=== PATIENT | female | born 1980 | race Caucasian/White ===

== ENCOUNTER 2020-09-08 16:15 | Outpatient (REF) | payer OTHER, SELFPAY ==
[2020-09-08 18:27] LABS: Free T4 (Free Thyroxine) 0.93 ng/dL (0.71-1.85); Thyroid Stimulating Hormone 4.66 uIU/mL (0.32-4.0)
[2020-09-10 20:31] LABS: Triiodothyronine T3 Free 3.4 pg/mL (2.3-4.2)
[2020-09-10 22:03] LABS: Thyroglobulin Antibodies <1 IU/mL (< or = 1); Thyroid Peroxidase Antibodies 153 IU/mL (<9)
== END 2020-09-08 16:16 | disposition home or self-care (01) ==
LOC: HO.LAB 16:15
PROVIDERS: PCP Family Medicine Adult Medicine; Visit Provider Nurse Practitioner Family
DX: E03.8 Other specified hypothyroidism (principal)
CPT/HCPCS: 36415; 84439; 84443; 84481; 86376; 86800

== ENCOUNTER 2020-11-04 07:42 | Outpatient (REF) | payer OTHER, SELFPAY ==
[2020-11-04 09:00] LABS: Alanine Aminotransferase 14 U/L (0-31); Albumin Level 4.3 g/dL (3.5-5.0); Alkaline Phosphatase 67 U/L (39-117); Aspartate Amino Transferase 14 U/L (5-31); Bilirubin Total 0.4 mg/dL (0.0-1.0); Blood Urea Nitrogen 12 mg/dL (9-16); Calcium 8.7 mg/dL (8.4-10.2); Estimated Glomerular Filt Rate > 60; Glucose Random 96 mg/dL (60-115); Total Protein 6.8 g/dL (6.5-8.0)
[2020-11-04 09:05] LABS: Free T4 (Free Thyroxine) 0.84 ng/dL (0.71-1.85)
[2020-11-04 09:07] LABS: Anion Gap 13 (12-20); Carbon Dioxide 25 mmol/L (22-29); Chloride 106 mmol/L (96-108); Potassium 4.8 mmol/l (3.3-5.1); Sodium 139 mmol/L (135-145)
[2020-11-05 09:37] LABS: Triiodothyronine T3 Free 3.1 pg/mL (2.3-4.2)
[2020-11-05 22:12] LABS: Adrenocorticotropic Hormone 29 pg/mL (6-50)
== END 2020-11-04 07:43 | disposition home or self-care (01) ==
LOC: HO.LAB 07:42
PROVIDERS: PCP Physician Assistant; Visit Provider Nurse Practitioner Family
DX: R53.82 Chronic fatigue, unspecified (principal); E03.8 Other specified hypothyroidism
CPT/HCPCS: 36415; 80053; 82024; 82533; 84439; 84443; 84481

== ENCOUNTER 2021-03-10 06:01 | Outpatient (REF) | payer OTHER, SELFPAY ==
[2021-03-10 08:13] LABS: Free T4 (Free Thyroxine) 0.83 ng/dL (0.71-1.85)
[2021-03-12 17:47] LABS: DHEA Sulfate 125 mcg/dL (23-266)
[2021-03-14 10:07] LABS: Testosterone, Total 29 ng/dL (2-45)
[2021-03-14 18:31] LABS: Progesterone 6.5 ng/mL
[2021-03-15 01:17] LABS: Dihydrotestosterone 14 ng/dL (< OR = 20)
[2021-03-15 11:37] LABS: Pregnenolone, LC/MS 156 ng/dL (22-237)
[2021-03-15 17:12] LABS: Testosterone, Free 1.8 pg/mL (0.1-6.4); Testosterone, Total 31 ng/dL (2-45)
[2021-03-19 20:12] LABS: Estradiol Free 1.94 pg/mL; Estradiol, Ultrasensitive 126 pg/mL
== END 2021-03-10 06:02 | disposition home or self-care (01) ==
LOC: HO.LAB 06:01
PROVIDERS: PCP Physician Assistant; Visit Provider Nurse Practitioner Family
DX: N94.3 Premenstrual tension syndrome (principal); E03.8 Other specified hypothyroidism
CPT/HCPCS: 36415; 82627; 82642; 82670; 82681; 84143; 84144; 84402; 84403; 84439; 84443; 84481

== ENCOUNTER 2021-06-06 08:52 | Outpatient (REF) | payer OTHER, SELFPAY ==
[2021-06-07 09:12] LABS: Triiodothyronine T3 Free 3.8 pg/mL (2.3-4.2)
[2021-06-08 18:07] LABS: Thyroglobulin Antibodies <1 IU/mL (< or = 1); Thyroid Peroxidase Antibodies 96 IU/mL (<9)
== END 2021-06-06 08:53 | disposition home or self-care (01) ==
LOC: HO.LAB 08:52
PROVIDERS: PCP Physician Assistant; Visit Provider Nurse Practitioner Family
DX: E03.8 Other specified hypothyroidism (principal)
CPT/HCPCS: 36415; 84439; 84481; 86376; 86800

== ENCOUNTER 2021-06-08 08:30 | Outpatient (REF) | payer OTHER, SELFPAY ==
--- NOTE | ~2021-06-08 | US_ITS ---
EXAMINATION: US THYROID CLINICAL INFORMATION: Hypothyroidism. COMPARISON: CT neck with intravenous contrast dated 11/23/2018. TECHNIQUE: Linear transducer grayscale and color Doppler examination with attention to the region of the thyroid. FINDINGS: SIZE: Measurements of the thyroid lobes and nodules are given in sagittal, anteroposterior and transverse dimensions respectively. Right Thyroid Lobe: 3.4 x 0.9 x 1.2 cm, volume 1.9 mL. Parenchyma: The gland echotexture is heterogeneous. Thyroid vascularity is increased. Left Thyroid Lobe: 3.0 x 0.9 x 1.3 cm, volume 1.7 mL. Parenchyma: The gland echotexture is heterogeneous. Thyroid vascularity is increased. Isthmus: 0.12 cm in maximum AP dimension. No focal thyroid nodule is seen. NODES: No lymphadenopathy is seen in the tissue surrounding the thyroid gland. US/US thyroid IMPRESSION: 1. Normal-sized thyroid gland and no nodules seen. TR 1. ACR TI-RADS RECOMMENDATION REFERENCE: Ultrasound-guided fine-needle aspiration, followup ultrasound, no further follow up. * TR1 (0 point) and TR 2 (2 points): No FNA or follow up * TR3 (3 points): FNA if more than or equal to 2.5 cm in maximum dimension, followup ultrasound in 1, 3 and 5 years if 1.5 to 2.4 cm in maximum dimension. * TR4 (4-6 points): FNA if more than or equal to 1.5 cm in maximum dimension, followup ultrasound in 1, 2, 3 and 5 years if 1 to 1.4 cm in maximum dimension. * TR5 (more than or equal to 7 points): FNA if more than or equal to 1 cm in maximum dimension, followup ultrasound every year for 5 years if 0.5 to 0.9 cm in maximum dimension. * TR3, TR4 or TR5 nodules that are below the size threshold for follow up receive no follow up.
== END 2021-06-08 08:31 | disposition home or self-care (01) ==
LOC: HO.US 08:30
PROVIDERS: Visit Provider Nurse Practitioner Family
DX: E03.8 Other specified hypothyroidism (principal)
CPT/HCPCS: 76536

== ENCOUNTER → 2021-07-16 12:50 | Outpatient (BNVA) | payer OTHER, SELFPAY | PROVIDERS: PCP Physician Assistant; Visit Provider Internal Medicine Gastroenterology ==

== ENCOUNTER 2022-01-04 10:00 | Outpatient (REF) | payer OTHER, SELFPAY ==
--- NOTE | ~2022-01-04 | FL_ITS ---
EXAMINATION: FL BARIUM SWALLOW CLINICAL INFORMATION: Dysphagia COMPARISON: None TECHNIQUE: Barium swallow examination is performed using fluoroscopic evaluation in addition to multiple fluoroscopic spot views. The patient is imaged both upright and prone and using both thick and thin sulfate along with effervescent granules. Fluoroscopy time: 1.7 minutes DAP: 2.004 Gycm2 Images: 33 FINDINGS: Normal pharyngeal phase. The esophagus is normal in caliber with no stricture or mucosal abnormality demonstrated. Esophageal motility is normal. No hiatal hernia. No reflux observed. Barium tablet passed without difficulty. FL/FL barium swallow IMPRESSION: Normal barium swallow.
== END 2022-01-04 10:01 | disposition home or self-care (01) ==
LOC: HO.XRAY 10:00
PROVIDERS: Visit Provider Internal Medicine Gastroenterology
DX: R13.10 Dysphagia, unspecified (principal); K21.9 Gastro-esophageal reflux disease without esophagitis
CPT/HCPCS: 74220

== ENCOUNTER → 2022-01-07 14:05 | Outpatient (BNVA) | payer OTHER, SELFPAY | PROVIDERS: PCP Physician Assistant; Referring Provider Physician Assistant; Visit Provider Internal Medicine Gastroenterology | DX: Z12.11 Encounter for screening for malignant neoplasm of colon (principal); K21.9 Gastro-esophageal reflux disease without esophagitis; K22.70 Barrett's esophagus without dysplasia; R13.10 Dysphagia, unspecified; R13.12 Dysphagia, oropharyngeal phase | CPT/HCPCS: 99212 ==

== ENCOUNTER 2022-02-01 06:29 | Outpatient (REF) | payer OTHER, SELFPAY ==
--- NOTE | ~2022-02-01 | XR_ITS ---
EXAMINATION: RIGHT ELBOW X-RAY CLINICAL INFORMATION: Pain COMPARISON: None TECHNIQUE: 3 views of the right elbow FINDINGS: Bone alignment is normal. No fracture or dislocation is seen. Joint spaces are normal. There is no joint effusion. XR/XR shoulder RT min 2V IMPRESSION: Normal right elbow. EXAMINATION: Right shoulder x-ray CLINICAL INFORMATION: Pain COMPARISON: None. TECHNIQUE: 3 views of the right shoulder FINDINGS: Bone alignment is normal. No fracture or dislocation is seen. The joint spaces are normal. Soft tissues are normal. IMPRESSION: Normal right shoulder.
--- NOTE | ~2022-02-01 | XR_ITS ---
EXAMINATION: RIGHT ELBOW X-RAY CLINICAL INFORMATION: Pain COMPARISON: None TECHNIQUE: 3 views of the right elbow FINDINGS: Bone alignment is normal. No fracture or dislocation is seen. Joint spaces are normal. There is no joint effusion. XR/XR elbow RT 2V IMPRESSION: Normal right elbow. EXAMINATION: Right shoulder x-ray CLINICAL INFORMATION: Pain COMPARISON: None. TECHNIQUE: 3 views of the right shoulder FINDINGS: Bone alignment is normal. No fracture or dislocation is seen. The joint spaces are normal. Soft tissues are normal. IMPRESSION: Normal right shoulder.
--- NOTE | ~2022-02-01 | XR_ITS ---
EXAMINATION: XR CHEST CLINICAL INFORMATION: Chronic cough COMPARISON: Previous chest x-ray most recent August [address] October 2018 TECHNIQUE: 2 views of the chest were obtained. FINDINGS: No significant abnormality is noted involving the heart, lungs, mediastinum, bony thorax or soft tissues. XR/XR chest 2V IMPRESSION: Unremarkable examination.
[2022-02-01 08:52] LABS: C Reactive Protein 0.52 mg/dL (< or = 0.50); Uric Acid 3.8 mg/dL (2.4-5.7)
[2022-02-01 09:20] LABS: Free T4 (Free Thyroxine) 0.89 ng/dL (0.71-1.85); Thyroid Stimulating Hormone 0.41 uIU/mL (0.32-4.0)
[2022-02-01 09:38] LABS: Erythrocyte Sedimentation Rate 7 MM/HR (0-20)
[2022-02-03 01:57] LABS: Triiodothyronine T3 Free 3.3 pg/mL (2.3-4.2)
== END 2022-02-01 06:30 | disposition home or self-care (01) ==
LOC: HO.XRAY 06:29
PROVIDERS: Absent Provider Nurse Practitioner Family; PCP Physician Assistant; Visit Provider Nurse Practitioner Family
DX: G89.29 Other chronic pain (principal); M25.511 Pain in right shoulder; M25.521 Pain in right elbow; R05.3 Chronic cough; E03.8 Other specified hypothyroidism
CPT/HCPCS: 36415; 71046; 73030; 73070; 82550; 84439; 84443; 84481; 84550; 85652; 86140

== ENCOUNTER 2022-06-16 07:04 | Outpatient (REF) | payer OTHER, SELFPAY ==
[2022-06-16 08:21] LABS: Thyroid Stimulating Hormone 2.46 uIU/mL (0.32-4.0)
[2022-06-17 15:46] LABS: Triiodothyronine T3 Free 3.2 pg/mL (2.3-4.2)
[2022-06-17 16:56] LABS: Thyroglobulin Antibodies <1 IU/mL (< or = 1); Thyroid Peroxidase Antibodies 65 IU/mL (<9)
== END 2022-06-16 07:05 | disposition home or self-care (01) ==
LOC: HO.LAB 07:04
PROVIDERS: PCP Family Medicine Adult Medicine; Visit Provider Nurse Practitioner Family
DX: E03.8 Other specified hypothyroidism (principal)
CPT/HCPCS: 36415; 84439; 84443; 84481; 86376; 86800

== ENCOUNTER 2023-01-08 07:49 | Outpatient (REF) | payer OTHER, SELFPAY ==
[2023-01-08 08:10] LABS: MANUAL DIFF FLAG NO
[2023-01-08 08:13] LABS: Basophils Percent Auto 0.7 % (0-2); Eosinophils Absolute Auto 0.1 X10*3/uL (0.0-0.4); Eosinophils Percent Auto 1.9 % (0-4); Hematocrit 36.4 % (37.0-47.0); Hemoglobin 12.5 g/dl (12.0-16.0); Imm Gran Abs Auto 0.02 X10*3/uL (0.00-0.03); Imm Gran Pct Auto 0.3 % (0.0-0.4); Lymphocytes Absolute Auto 2.4 X10*3/uL (1.2-4.9); Lymphocytes Percent Auto 39.8 % (20-40); Mean Corpuscular HGB Conc 34.3 g/dl (31.0-35.0); Mean Corpuscular Volume 90.3 fL (80.0-98.0); Mean Platelet Volume 10.6 fL (9.4-12.3); Monocytes Absolute Auto 0.4 X10*3/uL (0.1-1.2); Monocytes Percent Auto 7.1 % (2-11); Neutrophils Percent Auto 50.2 % (45-73); Platelet Count 272 X10*3/uL (160-400); Red Blood Count 4.03 X10*6/uL (4.20-5.50); Red Cell Distribution Width 11.8 % (11.0-16.0); White Blood Count 5.9 X10*3/uL (4.8-10.8)
[2023-01-08 09:08] LABS: Alanine Aminotransferase 11 U/L (0-31); Albumin Level 3.8 g/dL (3.5-5.0); Alkaline Phosphatase 70 U/L (39-117); Anion Gap 10 (12-20); Aspartate Amino Transferase 14 U/L (5-31); Bilirubin Total 0.5 mg/dL (0.0-1.0); Blood Urea Nitrogen 11 mg/dL (9-16); Calcium 8.5 mg/dL (8.4-10.2); Carbon Dioxide 25 mmol/L (22-29); Chloride 108 mmol/L (96-108); Estimated Glomerular Filt Rate > 60; Glucose Random 91 mg/dL (60-115); Magnesium 2.1 mg/dL (1.6-2.6); Potassium 4.3 mmol/L (3.3-5.1); Sodium 139 mmol/L (135-145); Total Protein 6.1 g/dL (6.5-8.0)
[2023-01-08 09:37] LABS: Folate 8.7 ng/mL (> or = 4.0); Free T4 (Free Thyroxine) 0.79 ng/dL (0.71-1.85); Thyroid Stimulating Hormone 4.04 uIU/mL (0.32-4.0); Vitamin B12 453 pg/mL (200-900)
[2023-01-11 02:23] LABS: Thyroglobulin Antibodies <1 IU/mL (< or = 1); Thyroid Peroxidase Antibodies 135 IU/mL (<9)
[2023-01-12 12:38] LABS: Iodine, Serum/Plasma 40 mcg/L (52-109)
== END 2023-01-08 07:50 | disposition home or self-care (01) ==
LOC: HO.LAB 07:49
PROVIDERS: PCP Family Medicine Adult Medicine; Visit Provider Nurse Practitioner Family
DX: R53.83 Other fatigue (principal); E03.8 Other specified hypothyroidism
CPT/HCPCS: 36415; 80053; 82607; 82746; 83735; 83789; 84439; 84443; 84481; 85025; 86376; 86800

== ENCOUNTER 2023-04-13 15:17 | Emergency (ER) | payer OTHER, SELFPAY ==
--- NOTE | 2023-04-13 15:55 | PC.NURSE ---
called x 3 outside of ER and in [facility]. No answer. Presumed LWT.
--- NOTE | 2023-04-13 16:17 | PC.NURSE ---
called x 3 inside and outside of [facility]. No answer.
== END 2023-04-13 16:38 | disposition left against medical advice (07) ==
LOC: HO.ED 16:38
PROVIDERS: Emergency Provider Emergency Medicine
DX: Z53.21 Procedure and treatment not carried out due to patient leaving prior to being seen by health care provider (principal)

== ENCOUNTER 2023-05-03 01:46 | Emergency (ER) | payer OTHER, SELFPAY ==
[2023-05-03 01:49] VITALS: BP 115/80; PULSE 75; RESP 16; TEMP 37.1; O2SAT 97; BMI 22.6
[2023-05-03 04:00] VITALS: BP 103/56; PULSE 70; RESP 16; TEMP 36.5; O2SAT 95
--- NOTE | 2023-05-03 06:45 | ED.GENADULT ---
HPI - General Adult General Chief complaint: General Medical Stated complaint: Rash/?Face swelling Time Seen by Provider: 05/03/23 06:28 Source: patient Mode of arrival: ambulatory Limitations: no limitations History of Present Illness HPI narrative: 42 yo female presents to the ER for evaluation of a rash to the inside of her right eye that started 3 days ago after working in the yard the day before. She states she woke up with a swollen upper eye lid on the right eye and a rash on the inside of the eye. It is itching and burning. The eyelid swelling improved with benadryl but the rash has since spread to her forehead, face and back of her neck on both sides. No difficulty breathing or oral involvement. She reports the vision in the right eye is blurry sometimes. MD complaint: facial rash Onset (ago): day(s) (3) Location: face and neck Severity: moderate Quality: burning and other (itching) Pain Consistency: constant Relieving factors: none Exacerbating factors: none Associated symptoms: denies other symptoms Treatments prior to arrival: none Related Data Home Medications Medication Instructions Recorded Confirmed thyroid (pork) 15 mg tablet mg PO QID 07/16/21 03/03/22 ([place] Thyroid) Allergies Allergy/AdvReac Type Severity Reaction Status Date / Time CRANBERRY JUICE Allergy Severe HIVES Uncoded 03/03/22 10:22 Review of Systems Review of Systems: Yes all other systems are reviewed and are negative PMFSH Past Medical History Medical History Multiple gastric ulcers Post concussion syndrome Surgical History H/O dilation and curettage (~1999) Hx of endoscopy (~07/2017) Family History Family History Mother Diabetes Heart disease Heart failure Father Heart failure Heart disease Paternal Grandmother Diabetes Prostate CA Paternal Uncle Prostate CA Social History Social History Household Members: None Housing: House Alcohol intake: never Patient Tobacco Use Status: Current someday Tobacco user Tobacco use type: Cigarette Smoked in Last 30 Days: No e-Cigarette/Vaping Use: Never Used Use of substances other than those prescribed or required for medical reasons: No Advance Directives: No Advance Directives Information Provided: Yes Patient : No service: No Current occupational status: student Current occupational exposures/hazards: No Cognitive needs: No Hearing needs: No Vision needs: No Physical Exam ED Vital Signs: Vital Signs - 24 hr 05/03/23 01:49 05/03/23 04:00 Temperature 98.8 F 97.7 F Pulse Rate 75 70 Respiratory Rate 16 16 Blood Pressure 115/80 103/56 L Pulse Oximetry 97 95 Oxygen Delivery Method Room Air Room Air BMI result Body Mass Index 22.6 Appearance: Alert. Oriented X3. No acute distress. HEENT: normal inspection of the bilateral eyes and eyelids, PERRLA CVS: Normal heart rate and rhythm. Pulses normal. Respiratory: No respiratory distress. Lungs CTAB Skin: Skin warm and dry. Normal skin color. Normal skin turgor. There is a erythematous, raised, scatted rash on the inside of the right eye, upper forehead bilaterally and the back of the neck bilaterally with few lesions Extremities: normal inspection x4, no joint swelling, no lower extremity edema Neuro: Oriented X 3. No motor deficit. No sensory deficit. Medical Decision Making Medical Decision Making MDM Narrative: 42 yo female presents to the ER for evaluation of a burning, itching rash that started near the right eye 3 days ago and has since spread to the forehead and neck, after working in the yard. Exam and clinical presentation c/w poison naila dermatits. Less likely shingles given that it crosses midline and involves more than one dermatome, although could have multiple ganglions involved. Given her blurred vision and close proximity to the eye, plan was for fluoroscene exam. Prednisone was ordered. Patient eloped prior to full evaluation and treatment. Differential Diagnosis Differential Diagnoses: The differential diagnosis associated with the presentation includes poison naila, contact dermatitis, shingles, allergic dermatitis External Record Review External record reviewed: Outpatient record and Prior outpatient labs Prescription Management I considered prescription management with: Antiviral Critical Care Time Critical Care Time Critical Care Time: No Discharge Plan Discharge Clinical Impression: Rash Patient Disposition: Elopement Prescriptions: No Action thyroid (pork) [[place] Thyroid] 15 mg tablet PO QID Interventions: ED Discharge Assessment Last Done: 05/03/23 07:03 Discharge Date/Time: 05/03/23 07:03
--- NOTE | 2023-05-03 07:01 | PC.NURSE ---
Pt not in room for med administration, per staff she asked to be buzzed out .
== END 2023-05-03 07:03 | disposition left against medical advice (07) ==
PROVIDERS: Emergency Provider Emergency Medicine Emergency Medical Services
DX: R21 Rash and other nonspecific skin eruption (principal); H53.8 Other visual disturbances
CPT/HCPCS: 99282; 99284

== ENCOUNTER 2023-07-08 07:24 | Outpatient (REF) | payer OTHER, SELFPAY ==
[2023-07-08 09:08] LABS: Alanine Aminotransferase 10 U/L (0-31); Albumin Level 4.2 g/dL (3.5-5.0); Alkaline Phosphatase 79 U/L (39-117); Anion Gap 11 (12-20); Aspartate Amino Transferase 15 U/L (5-31); Bilirubin Total 0.3 mg/dL (0.0-1.0); Blood Urea Nitrogen 22 mg/dL (9-16); Calcium 9.4 mg/dL (8.4-10.2); Carbon Dioxide 24 mmol/L (22-29); Chloride 109 mmol/L (96-108); Estimated Glomerular Filt Rate > 60; Glucose Random 94 mg/dL (60-115); Potassium 4.2 mmol/L (3.3-5.1); Sodium 140 mmol/L (135-145); Total Protein 7.1 g/dL (6.5-8.0)
[2023-07-08 09:25] LABS: Free T4 (Free Thyroxine) 0.83 ng/dL (0.71-1.85); Thyroid Stimulating Hormone 0.97 uIU/mL (0.32-4.0)
[2023-07-08 09:37] LABS: Vitamin B12 437 pg/mL (200-900)
[2023-07-08 17:09] LABS: Cortisol Random 5.3 ug/dL
[2023-07-10 03:23] LABS: DHEA Sulfate 106 mcg/dL (19-237); Follicle Stimulating Hormone 2.9 mIU/mL
[2023-07-11 20:24] LABS: Thyroid Peroxidase Antibodies 110 IU/mL (<9)
[2023-07-12 17:59] LABS: Thyroglobulin Antibodies <1 IU/mL (< or = 1)
[2023-07-13 04:19] LABS: Methylmalonic Acid 126 nmol/L (87-318)
[2023-07-13 16:58] LABS: Magnesium, RBC 6.2 mg/dL (4.0-6.4)
[2023-07-13 19:29] LABS: Iodine, Serum/Plasma 47 mcg/L (52-109)
[2023-07-14 05:19] LABS: Dihydrotestosterone 16 ng/dL (< OR = 20)
[2023-07-14 11:57] LABS: Adrenocorticotropic Hormone 25 pg/mL (6-50)
[2023-07-14 12:38] LABS: Testosterone, Free 1.9 pg/mL (0.1-6.4); Testosterone, Total 22 ng/dL (2-45)
[2023-07-14 19:57] LABS: Progesterone 17.5 ng/mL
[2023-07-14 23:13] LABS: Estradiol Ultra Sensitive 164 pg/mL
[2023-07-19 23:39] LABS: Pregnenolone, LC/MS 121 ng/dL (22-237)
== END 2023-07-08 07:25 | disposition home or self-care (01) ==
LOC: HO.LAB 07:24
PROVIDERS: Visit Provider Nurse Practitioner Family
DX: R53.82 Chronic fatigue, unspecified (principal); N94.3 Premenstrual tension syndrome; E03.8 Other specified hypothyroidism
CPT/HCPCS: 36415; 80053; 82024; 82533; 82607; 82627; 82642; 82670; 82746; 83001; 83002; 83735; 83789; 83921; 84143; 84144; 84402; 84403; 84439; 84443; 84481; 86376; 86800

== ENCOUNTER 2024-01-26 10:45 | Outpatient (AMB) | payer OTHER, SELFPAY ==
--- NOTE | 2024-01-26 10:46 | MHC.OFFVIS ---
Intake Visit Reasons: Bloating, CIC, Upper GI Issues Intake Note: Patient follow up for bloating, CIC and Upper GI issues. Patient cc: abdominal discomfort and bloating, greasy BM and hard to pass. Denies any other GI issues. Patient is in [place] and is coming back middle of January. Dietetic Aide Required: No Allergies CRANBERRY JUICE Allergy (Severe, Uncoded 03/15/24 13:51) HIVES HPI HPI Bloating, CIC, Upper GI Issues: Details: TELEMEDICINE VISIT FOR THIS 43-YEAR-OLD FEMALE FOR FOLLOW-UP OF GERD? COMPLICATED BY MEEKS'S ESOPHAGUS Pt was last seen in December,. States she is in [place] and will return mid January ?CHRONIC ILLNESSES: vitiligo, Rosacea, Post concussion syndrome,? Hypothyroidism ?LABS IN [employer]: 04/03/20 reviewed. 11/23/19 Reviewed,? celiac serologies were negative in 2016 ?IMAGING STUDIES: 01/04/22 BARIUM SWALLOW SHOWED: Normal pharyngeal phase. The esophagus is normal in caliber with no stricture or mucosal abnormality demonstrated. Esophageal motility is normal. No hiatal hernia. No reflux observed. Barium tablet passed without difficulty. 07/17 HIDA? scan was normal. ?06/16 Abd US? showed: ?IMPRESSION: ?1. There is mild echogenic bile, without? cholelithiasis, cholecystitis or choledocholithiasis. ?2. Limited? ultrasound examination of the pancreatic tail. ?3. Otherwise,? unremarkable abdominal ultrasound examination. ?ENDOSCOPIC? STUDIES: ?BIOPSIES SHOWED: ?A. Small bowel, biopsy: Small? intestinal mucosa within normal limits. ?B. Stomach, ulcer, biopsy:? Reactive gastropathy with background mild chronic inactive ? inflammation and intestinal metaplasia; no dysplasia seen; no Helicobacter? organisms seen. ?C. Stomach, antrum, biopsy: Antral-type mucosa with? mild chronic, focally active, inflammation; no Helicobacter organisms? seen. ?D. Esophagus, distal, biopsy: ?- Cardiofundic-type? mucosa with mild chronic inactive inflammation; no intestinal metaplasia? seen. ?- Chronic active esophagitis (rare eosinophil). ?E.? Esophagus, proximal, biopsy: Squamous epithelium within normal limits; no? inflammation seen. ?TODAY'S VISIT Patient follow up for bloating, CIC and Upper GI issues. Patient cc: abdominal discomfort and bloating, greasy BM and hard to pass. Patient is in [place] and is coming back middle of January. I have been bloated for 4 months - extreme bloating. She has been in [place] for the past 2 months She is helping family in [place]. Planning to return on 02/18/24 Irregular BMs - Bms are soft and hard to pass Has a BM daily - sometimes multiple soft small BMs which are hard to pass Tried fasting and drinking large quantities of liquids Has hypothyroidism and is under control - has lab tests every 3 months Had a colonoscopy in [address] Britton at [facility] [place] for evaluation of her GI symptoms - does not recall the results. PAST VISIT: Barium swallow results reviewed with the patient - normal Notes dysphagia to solids and liquids - food feels stuck before it goes. No problems after she swallows the food Has been feeling exhausted with brain fog. New thyroid medications are working better than the previous preparation. Switched from Levothyroxine to [place] (natural thyroid hormone from pig hormone) ? ? ? Thyroid hormones are normal, has more energy and resolution of brain fog. ? ? ? Wakes up congested and throat is sore. ?? ? Denies frequent heartburn - only notes heartburn when she drinks colored liquids and only drinks water. Notes a lot of bloating - does a lot of fasting due to bloating. Sensitive stomach and unable to put any pressure on it. Notes constipation before her periods, diarrhea when her periods start. Has a feeling of incomplete evacuation - always feels something is there. Has 3 BM in the am - and 1-2 in the afternoon Takes brown rice and a high fibre diet. Lost 12 lbs over the past 2 months since switching to [place]. Takes BPC 157 SQ every night (peptide) - prescribed by a Roller - which has helped with bloating and feeling full. Is able to eat certain things which she could not take before. ?Diagnosed with hypothyroidism since 2019 and sees an customs manager. ?Has had difficulty swallowing for the past few years - has trouble initiating swallowing and has to drink a lot of liquids to make it go down. ?Trouble swallowing solids/dense foods. ?Denies having to regurgitate the food. ?Has seen ENT for recurring tonsillar stones ?Attempted a barium swallow which failed due to terrible gag reflux. ?Had serious bloating in the past and has improved with dietary modification. ?Diagnosed with IBS and feels GI problems are related to hormones ?Notes constipation before menstruation and notes loose stools once she starts menstruating followed by normal stools. ?Patient denies black stools or rectal bleeding ?Denies heartburn, nausea or vomiting, change in appetite. ?Has gained 20 lbs in the past year and has not been able to loose the weight. ?Had a colonoscopy in [address] Britton at [facility] [place] for evaluation of her GI symptoms - does not recall the results. PAST VISIT: ? Its been so much? better ?Completely stays away from the Motrin ?Has not been? taking Omeprazole. ?Avoiding acidic foods and soy? products ?Going to the bathroom normally. ?Stopped taking her? thyroid medication 3-4 weeks and feels [facility] Medical History (Updated 03/15/24 @ 13:53 by Bjorn Dennis MD) Acquired hypothyroidism Multiple gastric ulcers Post concussion syndrome Surgical History H/O dilation and curettage (~1999) Hx of endoscopy (~07/2017) Family History Mother Diabetes Heart disease Heart failure Father Heart failure Heart disease Paternal Grandmother Diabetes Prostate CA Paternal Uncle Prostate CA Social History Household Members: None Housing: House Alcohol intake: never Patient Tobacco Use Status: Former Tobacco user Tobacco use type: Cigarette e-Cigarette/Vaping Use: Never Used Second Hand Smoke Exposure: Yes service: No Current occupational status: student Current occupational exposures/hazards: No Cognitive needs: No Hearing needs: No Vision needs: No Review of Systems Const All systems reviewed & are unremarkable except as noted in HPI and below Telehealth Telehealth Location of provider rendering services: practice address Location of patient: address on file Patient Identification confirmed using: Name, : Yes Telehealth method: voice only Patient verbally consented to treatment: Yes Patient verbally consented to billing insurance company: Yes Patient informed of any privacy concerns related to visit: Yes Minutes spent on Phone/Video with Pt.: 20 Assessment & Plan Assessment & Plan (1) GERD (gastroesophageal reflux disease): Code(s): K21.9 - Gastro-esophageal reflux disease without esophagitis Category: Medical (2) Dysphagia: Code(s): R13.10 - Dysphagia, unspecified Category: Medical (3) Colon cancer screening: Code(s): Z12.11 - Encounter for screening for malignant neoplasm of colon Category: Medical (4) Barretts esophagus: Code(s): K22.70 - Meeks's esophagus without dysplasia Category: Medical (5) Oropharyngeal dysphagia: Code(s): R13.12 - Dysphagia, oropharyngeal phase Category: Medical (6) Abdominal bloating: Code(s): R14.0 - Abdominal distension (gaseous) Category: Medical Plan 43-year-old female followed in GI for oropharyngeal dysphagia and Meeks's? esophagus. 04/03/20 EGD showed Edematous folds in the pre-pyloric area with three 5-10 mm non-bleeding ulcers likely due to NSAID use. Gastric biopsies were? negative for Helicobacter pylori. Abdominal pain has resolved since she? discontinued taking ibuprofen. Oropharyngeal dysphagia is likely related to? enlarged tonsills with recurrent stones. Pt is thinking of having tonsillectomy? at some point in the future. She attempted a barium swallow in the past which failed? due to a terrible gag reflux. History of Meeks's esophagus: Recent EGD with? esophageal biopsies did not confirm a diagnosis of Meeks's. Patient was? advised repeat EGD in 2-3 (2022) years for follow-up. 01/04/22 barium swallow was normal - dysphagia is likely due to enlarged tonsils versus esophageal motility disorder. 01/26/24 I have been bloated for 4 months - extreme bloating. Irregular BMs - Bms are soft and hard to pass Has a BM daily - sometimes multiple soft small BMs which are hard to pass Tried fasting and drinking large quantities of liquids Has hypothyroidism and is under control - has lab tests every 3 months Pt advised a trail of Miralax daily and take a low fibre diet to see if bloating improves Pt was advised to seek medical care in [place] if she needs urgent evaluation. Pt stated she does not feel she needs to go to the ER and non-ER visits are not covered by her insurance. She was advised to have labs, stool tests and a KUB - pt [place] the [place] Urgent FU scheduled in the clinic 2-3 weeks after above labs and xrays Pt is interested in scheduling an EGD and a colonoscopy Orders: Orders Complete Blood Count Auto Diff 01/26/24 R14.0 - Abdominal distension (gaseous) AMB Stool Occult Bld Single 01/26/24 R14.0 - Abdominal distension (gaseous) Comprehensive Met. Panel 01/26/24 R14.0 - Abdominal distension (gaseous) Vitamin B12 and Folate 01/26/24 R14.0 - Abdominal distension (gaseous) Lipase 01/26/24 R14.0 - Abdominal distension (gaseous) C Reactive Protein 01/26/24 R14.0 - Abdominal distension (gaseous) Pancreatic Elastase-1 01/26/24 R14.0 - Abdominal distension (gaseous) Fecal Fat Qualitative 01/26/24 R14.0 - Abdominal distension (gaseous) XR KUB 01/26/24 R14.0 - Abdominal distension (gaseous) Coding Level of Care Code Tele Est Pt Level 3 (88951) Diagnoses GERD (gastroesophageal reflux disease) K21.9 Dysphagia R13.10 Colon cancer screening Z12.11 Barretts esophagus K22.70 Oropharyngeal dysphagia R13.12 Abdominal bloating R14.0
== END 2024-01-26 13:17 | disposition home or self-care (01) ==
LOC: HO.HGI 10:45
PROVIDERS: Visit Provider Internal Medicine Gastroenterology
DX: K21.9 Gastro-esophageal reflux disease without esophagitis (principal); K22.70 Barrett's esophagus without dysplasia; R13.12 Dysphagia, oropharyngeal phase; R14.0 Abdominal distension (gaseous)
CPT/HCPCS: 99499

== ENCOUNTER → 2024-01-26 10:45 | Outpatient (BNVA) | payer OTHER, SELFPAY | PROVIDERS: Visit Provider Internal Medicine Gastroenterology ==

== ENCOUNTER 2024-02-23 06:09 | Outpatient (REF) | payer OTHER, SELFPAY ==
--- NOTE | ~2024-02-23 | XR_ITS ---
EXAMINATION: XR ABDOMEN KUB CLINICAL INDICATION: Abdominal distention and bloating for 4 months COMPARISON: None available. TECHNIQUE: AP view of the abdomen. FINDINGS: The bowel gas pattern is normal with no evidence of ileus or obstruction. No unusual soft tissue calcifications are noted. The bones are unremarkable. Mild stool burden. Bibasilar hazy opacities seen at the lung bases, nonspecific. XR/XR KUB IMPRESSION: * Nonobstructive bowel gas pattern. * Bibasilar hazy opacities seen at the lung bases, nonspecific.
[2024-02-23 06:23] LABS: MANUAL DIFF FLAG NO
[2024-02-23 08:00] LABS: Basophils Percent Auto 0.6 % (0-2); Eosinophils Absolute Auto 0.1 X10*3/uL (0.0-0.4); Eosinophils Percent Auto 1.7 % (0-4); Hematocrit 39.6 % (37.0-47.0); Hemoglobin 13.1 g/dl (12.0-16.0); Imm Gran Abs Auto 0.01 X10*3/uL (0.00-0.03); Imm Gran Pct Auto 0.1 % (0.0-0.4); Lymphocytes Absolute Auto 2.8 X10*3/uL (1.2-4.9); Mean Corpuscular HGB Conc 33.1 g/dl (31.0-35.0); Mean Corpuscular Hemoglobin 30.3 pg (27.0-33.0); Mean Corpuscular Volume 91.5 fL (80.0-98.0); Mean Platelet Volume 11.3 fL (9.4-12.3); Monocytes Absolute Auto 0.6 X10*3/uL (0.1-1.2); Monocytes Percent Auto 8.4 % (2-11); Neutrophils Absolute Auto 3.4 x10*3/uL (2.0-8.3); Neutrophils Percent Auto 49.2 % (45-73); Platelet Count 312 X10*3/uL (160-400); Red Blood Count 4.33 X10*6/uL (4.20-5.50); Red Cell Distribution Width 11.9 % (11.0-16.0)
[2024-02-23 08:43] LABS: Alanine Aminotransferase 10 U/L (0-31); Albumin Level 4.4 g/dL (3.5-5.0); Alkaline Phosphatase 79 U/L (39-117); Anion Gap 12 (12-20); Aspartate Amino Transferase 14 U/L (5-31); Bilirubin Total 0.5 mg/dL (0.0-1.0); Blood Urea Nitrogen 13 mg/dL (9-16); Calcium 9.4 mg/dL (8.4-10.2); Carbon Dioxide 26 mmol/L (22-29); Chloride 106 mmol/L (96-108); Estimated Glomerular Filt Rate > 60; Glucose Random 87 mg/dL (60-115); Lipase 32 U/L (8-78); Potassium 3.9 mmol/L (3.3-5.1); Sodium 140 mmol/L (135-145); Total Protein 7.6 g/dL (6.5-8.0)
[2024-02-23 08:59] LABS: Folate 9.8 ng/mL (> or = 4.0); Vitamin B12 411 pg/mL (200-900)
[2024-02-23 21:29] LABS: Free T4 (Free Thyroxine) 0.81 ng/dL (0.71-1.85)
[2024-02-29 16:28] LABS: Fecal Fat Qualitative NORMAL (NORMAL)
[2024-02-29 20:18] LABS: Pancreatic Elastase-1 >500 mcg/g
== END 2024-02-23 06:10 | disposition home or self-care (01) ==
LOC: HO.XRAY 06:09
PROVIDERS: PCP Internal Medicine; Visit Provider Internal Medicine Gastroenterology
DX: R13.12 Dysphagia, oropharyngeal phase (principal); R14.0 Abdominal distension (gaseous); K21.9 Gastro-esophageal reflux disease without esophagitis; K22.70 Barrett's esophagus without dysplasia
CPT/HCPCS: 36415; 74018; 80053; 82607; 82656; 82705; 82746; 83690; 84439; 84443; 85025; 86140; 99212

== ENCOUNTER 2024-02-23 06:21 | Outpatient (REF) | payer OTHER, SELFPAY | END 2024-02-23 06:22 | disposition home or self-care (01) | LOC: HO.LAB 06:21 | PROVIDERS: Visit Provider Internal Medicine Gastroenterology | DX: Z13.89 Encounter for screening for other disorder (principal) ==

== ENCOUNTER 2024-02-23 10:36 | Outpatient (AMB) | payer OTHER, SELFPAY ==
--- NOTE | 2024-02-23 10:38 | MHC.OFFVIS ---
Vital Signs 02/23/24 10:43 Height 5 ft 6 in Weight 143 lb BMI 23.1 BP 110/70 Blood Pressure Location Lt brachial Position Sitting Pulse 82 Intake Visit Reasons: Gastroesophageal reflux disease (GERD) Intake Note: Patient follow up for GERD Patient cc: abdominal bloating, grease stool, rectal bleeding on the pass month but it pass away, patient did some lab and KUB this morning. 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 COMPLICATED BY ZARATE'S ESOPHAGUS Pt was last seen in December,. States she is in [place] and will return mid January ?CHRONIC ILLNESSES: vitiligo, Rosacea, Post concussion syndrome,? Hypothyroidism ?LABS IN [facility]: 04/03/20 reviewed. 11/23/19 Reviewed,? celiac serologies were negative in 2016 ?IMAGING STUDIES: 01/04/22 BARIUM SWALLOW SHOWED: Normal pharyngeal phase. The esophagus is normal in caliber with no stricture or mucosal abnormality demonstrated. Esophageal motility is normal. No hiatal hernia. No reflux observed. Barium tablet passed without difficulty. 07/17 HIDA? scan was normal.? 06/16 Abd US? showed: ?IMPRESSION: ?1. There is mild echogenic bile, without? cholelithiasis, cholecystitis or choledocholithiasis. ?2. Limited? ultrasound examination of the pancreatic tail. ?3. Otherwise,? unremarkable abdominal ultrasound examination. ?ENDOSCOPIC? STUDIES: ?BIOPSIES SHOWED: ?A. Small bowel, biopsy: Small? intestinal mucosa within normal limits. ?B. Stomach, ulcer, biopsy:? Reactive gastropathy with background mild chronic inactive ? inflammation and intestinal metaplasia; no dysplasia seen; no Helicobacter? organisms seen. ?C. Stomach, antrum, biopsy: Antral-type mucosa with? mild chronic, focally active, inflammation; no Helicobacter organisms? seen. ?D. Esophagus, distal, biopsy: ?- Cardiofundic-type? mucosa with mild chronic inactive inflammation; no intestinal metaplasia? seen. ?- Chronic active esophagitis (rare eosinophil). ?E.? Esophagus, proximal, biopsy: Squamous epithelium within normal limits; no? inflammation seen. ?TODAY'S VISIT Patient cc: abdominal bloating, grease stool, rectal bleeding on the pass month but it pass away, patient did some lab and KUB this morning. Returned from [place] - Mom and Uncle are there. Uncle has gastro issues Bloating is bad Cant eat anything - has not been eating anything due to bloating Had bad bleeding with a BM 2 months ago Had a lot of blood with clots - denies constipation Lasted a few days and then stopped. BMs are greasy, hard to pass and soft and pasty like peanut butter with incomplete evacuation. Cant use the toilet without staining the bowl. Has to go 4 times a day. Had regular formed stools in the past. Has been taking Miralax once daily - stool became runny and no change in bloating Hx of constipation before menstruation and diarrhea later. Fasting helps and then gets bloated whenever she eats Family hx not know since pt is adopted. Biologic Mom has hx of breast ca PAST VISITS: Patient follow up for bloating, CIC and Upper GI issues. Patient cc: abdominal discomfort and bloating, greasy BM and hard to pass. Denies any other GI issues. Patient is in [place] and is coming back middle of January. I have been bloated for 4 months - extreme bloating. She has been in [place] for the past 2 months She is helping family in [place]. Planning to return on 02/18/24 Irregular BMs - Bms are soft and hard to pass Has a BM daily - sometimes multiple soft small BMs which are hard to pass Tried fasting and drinking large quantities of liquids Has hypothyroidism and is under control - has lab tests every 3 months Had a colonoscopy in [address] Britton at [facility] for evaluation of her GI symptoms - does not recall the results. PAST VISIT: Barium swallow results reviewed with the patient - normal Notes dysphagia to solids and liquids - food feels stuck before it goes. No problems after she swallows the food Has been feeling exhausted with brain fog. New thyroid medications are working better than the previous preparation. Switched from Levothyroxine to [place] (natural thyroid hormone from pig hormone) ? ? ? Thyroid hormones are normal, has more energy and resolution of brain fog. ? ? ? Wakes up congested and throat is sore. ?? ? Denies frequent heartburn - only notes heartburn when she drinks colored liquids and only drinks water. Notes a lot of bloating - does a lot of fasting due to bloating. Sensitive stomach and unable to put any pressure on it. Notes constipation before her periods, diarrhea when her periods start. Has a feeling of incomplete evacuation - always feels something is there. Has 3 BM in the am - and 1-2 in the afternoon Takes brown rice and a high fibre diet. Lost 12 lbs over the past 2 months since switching to [place]. Takes BPC 157 SQ every night (peptide) - prescribed by a Platinum[employer] - which has helped with bloating and feeling full. Is able to eat certain things which she could not take before. ?Diagnosed with hypothyroidism since 2019 and sees an orthotic technician. ?Has had difficulty swallowing for the past few years - has trouble initiating swallowing and has to drink a lot of liquids to make it go down. ?Trouble swallowing solids/dense foods. ?Denies having to regurgitate the food. ?Has seen ENT for recurring tonsillar stones ?Attempted a barium swallow which failed due to terrible gag reflux. ?Had serious bloating in the past and has improved with dietary modification. ?Diagnosed with IBS and feels GI problems are related to hormones ?Notes constipation before menstruation and notes loose stools once she starts menstruating followed by normal stools. ?Patient denies black stools or rectal bleeding ?Denies heartburn, nausea or vomiting, change in appetite. ?Has gained 20 lbs in the past year and has not been able to loose the weight. ?Had a colonoscopy in [address] Britton at [facility] for evaluation of her GI symptoms - does not recall the results. PAST VISIT: ? Its been so much? better ?Completely stays away from the Motrin ?Has not been? taking Omeprazole. ?Avoiding acidic foods and soy? products ?Going to the bathroom normally. ?Stopped taking her? thyroid medication 3-4 weeks and feels better [facility] Medical History Multiple gastric ulcers Post concussion syndrome Surgical History H/O dilation and curettage (~1999) Hx of endoscopy (~07/2017) Family History Mother Diabetes Heart disease Heart failure Father Heart failure Heart disease Paternal Grandmother Diabetes Prostate CA Paternal Uncle Prostate CA Social History Household Members: None Housing: House Alcohol intake: never Patient Tobacco Use Status: Current someday Tobacco user Tobacco use type: Cigarette e-Cigarette/Vaping Use: Never Used service: No Current occupational status: student Current occupational exposures/hazards: No Cognitive needs: No Hearing needs: No Vision needs: No Review of Systems Const All systems reviewed & are unremarkable except as noted in HPI and below ENT Reports Normal hearing present Neuro Reports Normal hearing present and Denies Abnormal speech present Physical Exam Vital Signs: Last Vital Signs Pulse 82 02/23/24 10:43 BP 110/70 02/23/24 10:43 BMI result Body Mass Index 23.1 Const General: healthy appearing and no acute distress Nutritional Appearance: average body habitus Orientation/consciousness: patient oriented x3 Limitations: no limitations HEENT Head: Yes normal to inspection Ears: hearing grossly normal bilaterally Mouth: Normal oral and palatal mucosa present Eyes Sclerae: sclerae normal Pupils: Equal, round and reactive pupils present Neck Neck: Yes normal visual inspection Chest Chest palpation & inspection: normal inspection of the chest Resp Effort & Inspection: normal respiratory effort Auscultation: clear to auscultation bilaterally Cardio Palpation: normal PMI Rate: regular rate Rhythm: regular rhythm Heart sounds: S1 normal heart sound present, S2 normal heart sound present and no murmurs GI Palpation (GI): Soft to palpation, nontender and No hepatosplenomegaly present Auscultation: normal bowel sounds Rectal Exam - Female: deferred Skin General skin exam: no rashes or lesions noted Neuro General: patient oriented x3, gait normal and moves all extremities Cranial nerves: Yes Equal, round and reactive pupils present and Yes Normal hearing present Speech: No Abnormal speech present Psych Appearance: grossly normal Mental Status: mental status grossly normal Assessment & Plan Assessment & Plan (1) Oropharyngeal dysphagia: Code(s): R13.12 - Dysphagia, oropharyngeal phase Category: Medical (2) Barretts esophagus: Code(s): K22.70 - Zarate's esophagus without dysplasia Category: Medical (3) Colon cancer screening: Code(s): Z12.11 - Encounter for screening for malignant neoplasm of colon Category: Medical (4) Dysphagia: Code(s): R13.10 - Dysphagia, unspecified Category: Medical (5) GERD (gastroesophageal reflux disease): Code(s): K21.9 - Gastro-esophageal reflux disease without esophagitis Category: Medical (6) Abdominal bloating: Code(s): R14.0 - Abdominal distension (gaseous) Category: Medical Plan 43-year-old female followed in GI for oropharyngeal dysphagia and Zarate's? esophagus. 04/03/20 EGD showed Edematous folds in the pre-pyloric area with three 5-10 mm non-bleeding ulcers likely due to NSAID use. Gastric biopsies were? negative for Helicobacter pylori. Abdominal pain has resolved since she? discontinued taking ibuprofen. Oropharyngeal dysphagia is likely related to? enlarged tonsills with recurrent stones. Pt is thinking of having tonsillectomy? at some point in the future. She attempted a barium swallow in the past which failed? due to a terrible gag reflux. History of Zarate's esophagus: Recent EGD with? esophageal biopsies did not confirm a diagnosis of Zarate's. Patient was? advised repeat EGD in 2-3 (2022) years for follow-up. 01/04/22 barium swallow was normal - dysphagia is likely due to enlarged tonsils versus esophageal motility disorder. 01/26/24 I have been bloated for 4 months - extreme bloating. Irregular BMs - Bms are soft and hard to pass Has a BM daily - sometimes multiple soft small BMs which are hard to pass Tried fasting and drinking large quantities of liquids Has hypothyroidism and is under control - has lab tests every 3 months Pt advised a trail of Miralax daily and take a low fibre diet to see if bloating improves Pt was advised to seek medical care in [place] if she needs urgent evaluation. Pt stated she does not feel she needs to go to the ER and non-ER visits are not covered by her insurance. She was advised to have labs, stool tests and a KUB - pt [place] Urgent FU scheduled in the clinic 2-3 weeks after above labs and xrays 02/23/24 continues to have bloating Pt advised to start taking probiotics FODMAP diet x 6 weeks Schedule EGD (FU of ? Zarate's and Colon (recent episode of rectal bleeding) - scheduled 08/03/24 FU in 8 weeks Orders: Orders TSH reflex Free T4 Today R14.0 - Abdominal distension (gaseous) Medications: New Lactobacillus rhamnosus GG (Culturelle) 1 cap PO DAILY 90 days 90 caps 0RF R14.0 - Abdominal distension (gaseous) Coding Level of Care Code Est Pt Level 4 (65384) Diagnoses Oropharyngeal dysphagia R13.12 Barretts esophagus K22.70 Colon cancer screening Z12.11 Dysphagia R13.10 GERD (gastroesophageal reflux disease) K21.9 Abdominal bloating R14.0 Time Spent (min) 25
[2024-02-23 10:43] VITALS: BP 110/70; PULSE 82; BMI 23.1
== END 2024-02-23 12:44 | disposition home or self-care (01) ==
PROVIDERS: Visit Provider Internal Medicine Gastroenterology
DX: R13.12 Dysphagia, oropharyngeal phase (principal); K22.70 Barrett's esophagus without dysplasia; Z12.11 Encounter for screening for malignant neoplasm of colon; R13.10 Dysphagia, unspecified; K21.9 Gastro-esophageal reflux disease without esophagitis; R14.0 Abdominal distension (gaseous)
CPT/HCPCS: 99214

== ENCOUNTER 2024-02-29 12:08 | Outpatient (REF) | payer OTHER, SELFPAY ==
[2024-02-29 14:29] LABS: Free T4 (Free Thyroxine) 0.88 ng/dL (0.71-1.85)
[2024-03-06 05:59] LABS: Thyroglobulin Antibodies <1 IU/mL (< or = 1); Thyroid Peroxidase Antibodies 124 IU/mL (<9)
== END 2024-02-29 12:09 | disposition home or self-care (01) ==
LOC: HO.LAB 12:08
PROVIDERS: Visit Provider Internal Medicine Gastroenterology
DX: E03.9 Hypothyroidism, unspecified (principal); R14.0 Abdominal distension (gaseous)
CPT/HCPCS: 36415; 84439; 84443; 86376; 86800

== ENCOUNTER 2024-03-15 13:07 | Outpatient (AMB) | payer OTHER, SELFPAY ==
--- NOTE | 2024-03-15 13:10 | MHC.PC.OV ---
Vital Signs 03/15/24 13:13 Height 5 ft 6 in Weight 146 lb BMI 23.6 BP 100/60 Blood Pressure Location Lt brachial Position Sitting Pulse 76 Pulse Source Pulse Oximeter Pulse Oximetry (%) 100 Oxygen Delivery Method Room Air Intake Visit Reasons: Abnormal Lab results Intake Note: Patient is here to follow up on Abnormal labs. 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 Salt Manager: Not Required per policy Accompanied by: Self / Same As Patient Allergies CRANBERRY JUICE Allergy (Severe, Uncoded 03/15/24 13:51) HIVES Medication List - Last Reconciled 03/15/24 by Bjorn Dennis MD Lactobacillus rhamnosus GG (Culturelle) 1 cap PO DAILY 90 days thyroid (pork) ([place] Thyroid) mg PO QID tretinoin 0.025% 1 appl topical BEDTIME Tobacco use date assessed: 03/15/24 Dental Screening Dental Screen Date: 03/15/24 Did you have a dental visit in the last 12 months?: Yes Did you have a dental problem in the last 6 months where you did not have access to dental care?: No Was dental information given to patient?: Patient has dentist HPI Abnormal Lab results HPI Details 43-year-old female presents to the office to discuss her medical conditions. I will be assuming her care as her providers have left the practice. Patient has history of hypothyroidism for which she takes [place] thyroid. This condition is being managed by [facility] medicine. Recently when she was in [place] she decided to reduce the dosage on the medications. She started having GI symptoms and when she saw her corporate statistical financial analyst, routine blood work showed a TSH of 10.1 and a repeat showed a TSH of 5.4. She is now increased her [place] thyroid medication. Patient has GI symptoms and declines label of IBS. She does see her corporate statistical financial analyst regularly. She has requesting an annual mammogram. [facility] Medical History (Updated 03/15/24 @ 13:53 by Bjorn Dennis MD) Acquired hypothyroidism Multiple gastric ulcers Post concussion syndrome Surgical History H/O dilation and curettage (~1999) Hx of endoscopy (~07/2017) Family History Mother Diabetes Heart disease Heart failure Father Heart failure Heart disease Paternal Grandmother Diabetes Prostate CA Paternal Uncle Prostate CA Social History Household Members: None Housing: House Alcohol intake: never Patient Tobacco Use Status: Former Tobacco user Tobacco use type: Cigarette e-Cigarette/Vaping Use: Never Used Second Hand Smoke Exposure: Yes service: No Current occupational status: student Current occupational exposures/hazards: No Cognitive needs: No Hearing needs: No Vision needs: No Questionnaire PHQ-9 Over the last 2 weeks, how often have you been bothered by any of the following problems? 1. Little interest or pleasure in doing things: not at all 2. Feeling down, depressed, or hopeless: not at all 3. Trouble falling or staying asleep, or sleeping too much: not at all 4. Feeling tired or having little energy: not at all 5. Poor appetite or overeating: not at all 6. Feeling bad about yourself - or that you are a failure or have let yourself or your family down: not at all 7. Trouble concentrating on things, such as reading the newspaper or watching television: not at all 8. Moving or speaking so slowly that other people could have noticed. Or the opposite - being so fidgety or restless that you have been moving around a lot more than usual: not at all 9. Thoughts that you would be better off or of hurting yourself in some way: not at all Total score: 0 Depression Screening Interpretation: Negative Depression Screening Done: Yes Source: Developed by Drs. Quincy Alvarez, Bernie Calloway, Bi Li and colleagues, with an educational sherlyn from [employer]. Thrive Questionnaire Date Thrive assessed: 03/15/24 I am a: Patient What is your living situation today?: I have a steady place to live Within the past 12 months, did the food you bought not last and you didn't have the money to get more?: Never true Within the past 12 months, did you worry whether your food would run out before you got money to buy more?: Never true Do you have trouble paying for medicines?: No Do you have trouble getting transportation to medical appointments?: No Do you have trouble paying your heating and electricity bill?: No Do you have trouble taking care of your child, family member or friend?: No Do you have trouble with day-to-day activities such as bathing, preparing meals, shopping, managing finances, etc.?: No Are you currently unemployed and looking for a job?: No Are you interested in more education?: No Currently or been in a relationship where the following occur: no concerns reported THRIVE Score: 0 AUDIT C Alcohol Use Questionnaire (AUDIT-C) 1. How often do you have a drink containing alcohol?: Never Total Score: 0 KELLIE-7 AMB Questionnaire KELLIE-7 Date KELLIE - 7 assessed: 03/15/24 Feeling nervous, anxious, or on edge: 0 = Not at all Not being able to stop or control worryin = Not at all Worrying too much about different things: 0 = Not at all Trouble relaxin = Not at all Being so restless that it is hard to sit still: 0 = Not at all Becoming easily annoyed or irritable: 0 = Not at all Feeling afraid as if something awful might happen: 0 = Not at all Total KELLIE-7 score (0-4 normal; 5-9 mild; 10-14 moderate; 15-21 severe): 0 Source: Developed by Drs. Quincy Alvarez, Bernie Calloway, Bi Li and colleagues, with an educational sherlyn from [employer]. Physical exam (Primary Care) Vital Signs: Last Vital Signs Pulse 76 03/15/24 13:13 BP 100/60 03/15/24 13:13 Pulse Ox 100 03/15/24 13:13 Oxygen Delivery Method Room Air 03/15/24 13:13 Care Plan Goal for BP management: Blood pressure is in range. BMI result Body Mass Index 23.6 Tobacco/Smoking Status: Tobacco use Status Tobacco use date assessed 03/15/24 03/15/24 13:19 Patient Tobacco Use Status Former Tobacco user 03/15/24 13:19 Tobacco use type Cigarette 03/15/24 13:12 e-Cigarette/Vaping Use Never Used 03/15/24 13:12 PHQ-9: PHQ-9 Score PHQ-9: Total score 0 03/15/24 13:12 Depression Screening Interpretation: Negative Thrive Assessment: Date of Thrive Assessment Date Thrive assessed 03/15/24 03/15/24 13:12 Currently or been in a relationship where the following occur: no concerns reported Const General: cooperative and healthy appearing Nutritional Appearance: well nourished Orientation/consciousness: patient oriented x3 Limitations: no limitations HENMT Head: Yes normal to inspection Eyes General: appearance normal, both eyes and all related structures Neck Neck: Yes normal visual inspection Chest Chest palpation & inspection: normal palpation of entire chest wall Resp Effort & Inspection: normal respiratory effort Neuro General: patient oriented x3 Assessment and Plan Assessment & Plan (1) Acquired hypothyroidism: Code(s): E03.9 - Hypothyroidism, unspecified Plan: TSH blood work reviewed with patient. Patient was encouraged to follow-up with her provider in [facility] to adjust the [place] thyroid dose. A screening mammogram has been ordered. Will call with the results. Orders: Orders MM screening mammo BI Today Z12.31 - Encounter for screening mammogram for malignant neoplasm of breast Medications: New tretinoin 0.025% 1 appl topical BEDTIME 45 grams 0RF Coding Level of Care Code Est Pt Level 4 (08999) Diagnoses Acquired hypothyroidism E03.9
[2024-03-15 13:13] VITALS: BP 100/60; PULSE 76; O2SAT 100; BMI 23.6
== END 2024-03-15 13:46 | disposition home or self-care (01) ==
PROVIDERS: PCP Internal Medicine; Visit Provider Internal Medicine
DX: E03.9 Hypothyroidism, unspecified (principal)
CPT/HCPCS: 99214

== ENCOUNTER 2024-10-04 06:24 | Outpatient (REF) | payer OTHER, SELFPAY ==
[2024-10-04 08:05] LABS: Free T4 (Free Thyroxine) 0.86 ng/dL (0.71-1.85); Thyroid Stimulating Hormone 8.07 uIU/mL (0.32-4.0)
[2024-10-06 01:58] LABS: Follicle Stimulating Hormone 14.9 mIU/mL; Lutenizing Hormone 16.5 mIU/mL
[2024-10-06 02:03] LABS: DHEA Sulfate 113 mcg/dL (15-205)
[2024-10-06 04:18] LABS: Thyroglobulin Antibodies <1 IU/mL (< or = 1); Thyroid Peroxidase Antibodies 83 IU/mL (<9)
[2024-10-10 17:58] LABS: Testosterone, Free 2.2 pg/mL (0.1-6.4); Testosterone, Total 27 ng/dL (2-45)
[2024-10-13 01:53] LABS: Dihydrotestosterone 11 ng/dL (< OR = 20)
[2024-10-14 23:03] LABS: Progesterone 6.2 ng/mL
[2024-10-16 19:18] LABS: Pregnenolone, LC/MS 168 ng/dL (22-237)
[2024-10-20 07:44] LABS: Estradiol Ultra Sensitive 115 pg/mL
== END 2024-10-04 06:25 | disposition home or self-care (01) ==
LOC: HO.LAB 06:24
PROVIDERS: Visit Provider Nurse Practitioner Family
DX: N94.3 Premenstrual tension syndrome (principal)
CPT/HCPCS: 36415; 82627; 82642; 82670; 83001; 83002; 84143; 84144; 84402; 84403; 84439; 84443; 84481; 86376; 86800

== ENCOUNTER 2025-05-01 05:38 | Emergency (ER) | payer MEDICAID, SELFPAY ==
[2025-05-01 05:42] VITALS: BP 110/70; PULSE 88; RESP 16; TEMP 36.8; O2SAT 99; BMI 26.0
--- OUTSIDE RECORDS SUMMARY | 2025-05-01 06:11 | XMS_ITS | Patient Health Record ---
Author Organization [facility] Address [address] [place] [address] Care Team Providers Care Paper Pattern Inspector Name Role Phone Torri (RETIRED) Cesar GAMEZ Primary Care Provide r Unavailable Mal Frye Jr Unavailable Reason For Referral No Information Plan Of Treatment No Information Insurance Providers Payer Name Payer Address Payer Phone Subscriber Number Group Number Insured Name Patient Relationship to Insured Coverage Start Date Coverage End Date [facility] [address] [address] [place], [place] [id number] JOSUE NELSON Self - patient is the insured [facility] Plan DON'T USE [address] [place] [id number] JOSUE NELSON Self - patient is the insured Medical (General) History Medical History History ICD Code plantar fasciitis rosacea vitiligo Surgical History Surgery Date(Month/Year) dilatation and curettage
[2025-05-01 06:23] LABS: IDNOW Serial# 55D5AD1C; Strep A Nucleic Acid Negative (Negative)
[2025-05-01 06:52] LABS: Resp Syncy Virus RNA Qual PCR NEGATIVE (Negative); SARS COV2 PCR INHOUSE NEGATIVE (Negative)
--- NOTE | 2025-05-01 06:55 | ED.URI ---
HPI - URI/Sore Throat General Chief Complaint: General Medical Stated Complaint: possible strep throat Time Seen by Provider: 05/01/25 06:12 Source: patient Mode of arrival: ambulatory Limitations: no limitations History of Present Illness ED Provider: RAMONA CODY Narrative: 44 yo female with PMH of hypothyroidism, gastric ulcers, esophagitis who notes she has sore throat, runny nose, malaise and dry cough for a couple of days. She notes her daughter was just dx with strep throat. She has had a fever as well. MD elicited complaint: fever, cough and sore throat Onset (ago): day(s) (couple) Consistency: constant Severity: moderate Description of mucous: clear Able to tolerate fluids by mouth: Yes Exacerbating factors: swallowing Relieving factors: nothing Context: sick contacts Associated symptoms: fever, chills, voice changes, sore throat and cough Treatments prior to arrival: none Related Data Home Medications ?Medication ?Instructions ?Recorded ?Confirmed thyroid (pork) 15 mg tablet mg PO QID 07/16/21 02/23/24 ([facility] Thyroid) Previous Rx's ?Medication ?Instructions ?Recorded Lactobacillus rhamnosus GG 10 1 cap PO DAILY 90 days #90 caps 02/23/24 billion cell capsule (Culturelle) tretinoin 0.025 % topical cream 1 appl topical BEDTIME #45 grams 03/15/24 bisacodyl 5 mg tablet,delayed 20 mg (4 x 5 mg) PO ONCE colon 07/31/24 release (Dulcolax (bisacodyl)) prep 1 day #4 tabs polyethylene glycol 3350 17 17 g PO DAILY colon prep 1 day 07/31/24 gram/dose oral powder (Miralax) #238 grams bisacodyl 5 mg tablet,delayed 20 mg (4 x 5 mg) PO ONCE 1 day #4 12/26/24 release (Dulcolax (bisacodyl)) tabs polyethylene glycol 3350 17 238 g PO ONCE 1 day #238 grams 12/26/24 gram/dose oral powder (Miralax) amoxicillin 500 mg capsule 500 mg PO BID 10 days #20 caps 05/01/25 Allergies Allergy/AdvReac Type Severity Reaction Status Date / Time CRANBERRY JUICE Allergy Severe HIVES Uncoded 05/01/25 05:44 Review of Systems Review of Systems: Constitutional : pos Fever, pos Chills, pos Fatigue ENT/Mouth : pos sore throat, No Rhinorrhea Eyes: No Eye Pain, No Swelling, No Redness Cardiovascular : No Chest Pain, No SOB, No Dyspnea on Exertion Respiratory : pos Cough, No Sputum Gastrointestinal : No Nausea, No Vomiting Musculoskeletal : No joint pain, No Myalgias, No Joint Swelling Skin : No Skin Lesions, No rash Neuro : No Weakness, No Numbness, No Dizziness, no Headache All other systems reviewed and are negative [facility] Past Medical History Attestation statement: The following information was validated with the patient. Source: old records reviewed Medical History Acquired hypothyroidism Multiple gastric ulcers Post concussion syndrome Surgical History H/O dilation and curettage (~1999) Hx of endoscopy (~07/2017) Family History Family History Mother Diabetes Heart disease Heart failure Father Heart failure Heart disease Paternal Grandmother Diabetes Prostate CA Paternal Uncle Prostate CA Social History Social History Household Members: None Housing: House Alcohol intake: never Patient Tobacco Use Status: Former Tobacco user Tobacco use type: Cigarette e-Cigarette/Vaping Use: Never Used Second Hand Smoke Exposure: Yes Advance Directives: No Do you have a plan to hurt others: No Plan service: No Current occupational status: student Current occupational exposures/hazards: No Cognitive needs: No Hearing needs: No Vision needs: No Physical Exam Vital Signs: Vital Signs: Last Vital Signs Temp 98.3 F 05/01/25 07:21 Pulse 88 05/01/25 07:21 Resp 16 05/01/25 07:21 BP 110/70 05/01/25 07:21 Pulse Ox 99 05/01/25 07:21 O2 Del Method Room Air 05/01/25 07:21 BMI result Body Mass Index 26.0 Appearance: Alert. Oriented X3. No acute distress. Eyes: Pupils equal, round and reactive to light. ENT: Pharynx erythema with uvula petechia, exudates on R tonsil, uvula is midline, no drooling, normal movement of neck Neck: Normal inspection. Neck supple. CVS: Normal heart rate and rhythm. Pulses normal. Respiratory: No respiratory distress. Breath sounds normal. Abdomen: Soft and nontender. Skin: Skin warm and dry. Normal skin color. Extremities: No lower extremity edema. Neuro: Oriented X 3. No motor deficit. No sensory deficit. CN2-12 intact Medical Decision Making Medical Decision Making [facility] Narrative: 44 yo female with PMH of hypothyroidism, gastric ulcers, esophagitis here with sore throat and exam concerning for strep throat - she has no CERTIFIED PHARMACIST ASSISTANT or signs of retropharyngeal abscess - will obtain swab Differential Diagnosis Differential Diagnoses: The differential diagnosis associated with the presentation includes viral syndrome, strep throat Admission/Observation Consideration of admission/observation: Escalation of care including admission/observation considered not toxic can tolerate PO Lab Data [facility] Lab Attestation statement: I reviewed the patient's lab results. strep test negative at this time based off hx and exam will start on amoxicillin Labs: Lab Results 05/01/25 Range/Units 06:03 Influenza Type A (PCR) NEGATIVE (Negative) Influenza Type B (PCR) NEGATIVE (Negative) RSV RNA Qual (PCR) NEGATIVE (Negative) SARS-CoV-2 RNA (RT-PCR) NEGATIVE (Negative) S. pyogenes GrpA SIENA Negative (Negative) External Record Review External record reviewed: Outpatient record Prescription Management I considered prescription management with: Antibiotic Discharge Plan Discharge Clinical Impression: Pharyngitis Qualifiers: Pharyngitis/tonsillitis etiology: unspecified etiology Qualified Code(s): J02.9 - Acute pharyngitis, unspecified Patient Disposition: Home, Self-Care Instructions: Pharyngitis (ED) Additional Instructions: negative for covid flu rsv negative strep swab given your exposure and symptoms will treat for strep throw away toothbrush in 24 hours, not infective 12 hours after first dose of abx On amoxicillin, softer bowel movements are to be expected. Call your provider if you move your bowels more than 4 times a day, your bowel movements are almost all liquid, or you get a rash.? Prescriptions: New amoxicillin 500 mg capsule 500 mg PO BID 10 Days Qty: 20 0RF No Action bisacodyl [Dulcolax (bisacodyl)] 5 mg tablet,delayed release (DR/EC) 20 mg PO ONCE 1 Days Qty: 4 0RF Rx Instructions: Take 4 tablets at 12 pm the day before colonoscopy appointment polyethylene glycol 3350 [Miralax] 17 gram/dose powder 17 g PO DAILY 1 Days Qty: 238 0RF Rx Instructions: Mix Miralax with 64 oz(8 cups) of Crystal light. Take 2 tablets of Dulcolax qt 12 pm. Wait to have your 1st bowel movement, then begin drinking Miralax. Drink a glass of Miralax every 10-15 minutes until you are finished. You will drink at least another 4 cups of clear liquid of your choice over the next 2 hours. Please drink as many clear liquids as possible You may have clear liquids up to four hours before your procedure bisacodyl [Dulcolax (bisacodyl)] 5 mg tablet,delayed release (DR/EC) 20 mg PO ONCE 1 Days Qty: 4 0RF Rx Instructions: the day before colonoscopy take 2 pills at 12pm and 2 pills at 5pm with plenty of water polyethylene glycol 3350 [Miralax] 17 gram/dose powder 238 g PO ONCE 1 Days Qty: 238 0RF Rx Instructions: THE DAY BEFORE your procedure mix entire bottle with 64 ounces of Gatorade- no red, blue or purple. AT 5PM Start drinking 1 cup every 15minutes until half is gone. Continue drinking plenty of clear liquids. AT 10PM Finish drinking remaining prep. tretinoin 0.025 % cream 1 appl topical BEDTIME Qty: 45 0RF thyroid (pork) [[facility] Thyroid] 15 mg tablet PO QID Culturelle 10 billion cell capsule 1 cap PO DAILY 90 Days Qty: 90 0RF Stand Alone Forms: Work/School Release Interventions: ED Discharge Assessment Last Done: 05/01/25 07:21 Discharge Date/Time: 05/01/25 07:21 Print Language: Divehi
[2025-05-01 07:21] VITALS: BP 110/70; PULSE 88; RESP 16; TEMP 36.8; O2SAT 99
== END 2025-05-01 07:21 | disposition home or self-care (01) ==
PROVIDERS: Emergency Provider Emergency Medicine; PCP Internal Medicine
DX: J02.9 Acute pharyngitis, unspecified (principal); R05.9 Cough, unspecified; R50.9 Fever, unspecified; Z03.818 Encounter for observation for suspected exposure to other biological agents ruled out; Z87.891 Personal history of nicotine dependence
CPT/HCPCS: 87637; 87651; 99283

== ENCOUNTER 2025-07-17 14:54 | Outpatient (AMB) | payer OTHER, MEDICAID, SELFPAY ==
[2025-07-17 15:00] VITALS: BP 102/64; PULSE 90; O2SAT 99; BMI 21.7
--- NOTE | 2025-07-17 15:00 | MHC.PC.OV ---
Vital Signs 07/17/25 15:00 Height 5 ft 6 in Weight 134 lb 8 oz BMI 21.7 BP 102/64 Blood Pressure Location Lt brachial Position Sitting Pulse 90 Pulse Source Pulse Oximeter Pulse Oximetry (%) 99 Oxygen Delivery Method Room Air Intake Visit Reasons: dry cough for 3 months Motel Keeper Required: No Accompanied by: Self / Same As Patient Allergies CRANBERRY JUICE Allergy (Severe, Uncoded 05/01/25 05:44) HIVES Medication List - Last Reviewed 07/17/25 by Ari Zuñiga MA thyroid (pork) ([facility] Thyroid) mg PO QID tretinoin 0.025% 1 appl topical BEDTIME Tobacco use date assessed: 03/15/24 Dental Screening Dental Screen Date: 07/17/25 Did you have a dental visit in the last 12 months?: Yes Did you have a dental problem in the last 6 months where you did not have access to dental care?: No Was dental information given to patient?: Patient has dentist HPI HPI Comments History of Present Illness Details The patient is a 44-year-old female presenting with persistent nocturnal cough. The patient reports the onset of Flu like symptoms following a trip to [place] a few months ago, which initially presented as a suspected illness but was later identified as allergies. She experienced symptoms such as a runny nose, arthralgia, sore throat and itchy eyes, which were alleviated with allergy medication, but she discontinued the medication due to concerns about long-term use. Currently, the patient experiences a persistent cough at night, which disrupts her sleep and causes morning lung discomfort. She also reports a raspy voice and occasional hot sensations in her hands and feet at night, which she manages with magnesium and topical creams. The patient expresses concerns about swollen lymph nodes, which she noticed recently, and attributes them to a past viral infection. The patient denies having acid reflux, despite occasional symptoms, and has undergone negative testing for it in the past. [facility] Medical History Acquired hypothyroidism Multiple gastric ulcers Post concussion syndrome Surgical History H/O dilation and curettage (~1999) Hx of endoscopy (~07/2017) Family History Mother Diabetes Heart disease Heart failure Father Heart failure Heart disease Paternal Grandmother Diabetes Prostate CA Paternal Uncle Prostate CA Social History Household Members: None Housing: House Alcohol intake: never Patient Tobacco Use Status: Former Tobacco user Tobacco use type: Cigarette e-Cigarette/Vaping Use: Never Used Second Hand Smoke Exposure: Yes service: No Current occupational status: student Current occupational exposures/hazards: No Cognitive needs: No Hearing needs: No Vision needs: No Questionnaire PHQ-9 Over the last 2 weeks, how often have you been bothered by any of the following problems? 1. Little interest or pleasure in doing things: not at all 2. Feeling down, depressed, or hopeless: not at all 3. Trouble falling or staying asleep, or sleeping too much: not at all 4. Feeling tired or having little energy: not at all 5. Poor appetite or overeating: not at all 6. Feeling bad about yourself - or that you are a failure or have let yourself or your family down: not at all 7. Trouble concentrating on things, such as reading the newspaper or watching television: not at all 8. Moving or speaking so slowly that other people could have noticed. Or the opposite - being so fidgety or restless that you have been moving around a lot more than usual: not at all 9. Thoughts that you would be better off or of hurting yourself in some way: not at all Total score: 0 Source: Developed by Drs. Quincy Alvarez, Bernie Calloway, Bi Li and colleagues, with an educational sherlyn from [employer]. Thrive Questionnaire Date Thrive assessed: 03/15/24 I am a: Patient What is your living situation today?: I have a steady place to live Within the past 12 months, did the food you bought not last and you didn't have the money to get more?: I choose not to answer this question Within the past 12 months, did you worry whether your food would run out before you got money to buy more?: I choose not to answer this question Do you have trouble paying for medicines?: I choose not to answer this question Do you have trouble getting transportation to medical appointments?: I choose not to answer this question Do you have trouble paying your heating and electricity bill?: I choose not to answer this question Do you have trouble taking care of your child, family member or friend?: I choose not to answer this question Do you have trouble with day-to-day activities such as bathing, preparing meals, shopping, managing finances, etc.?: I choose not to answer this question Are you currently unemployed and looking for a job?: I choose not to answer this question Are you interested in more education?: I choose not to answer this question Please select the resources that you would like help with: None Currently or been in a relationship where the following occur: I choose not to answer THRIVE Score: 0 AUDIT C Alcohol Use Questionnaire (AUDIT-C) 1. How often do you have a drink containing alcohol?: Never Total Score: 0 KELLIE-7 AMB Questionnaire KELLIE-7 Date KELLIE - 7 assessed: 03/15/24 Feeling nervous, anxious, or on edge: 0 = Not at all Not being able to stop or control worryin = Not at all Worrying too much about different things: 0 = Not at all Trouble relaxin = Not at all Being so restless that it is hard to sit still: 0 = Not at all Becoming easily annoyed or irritable: 0 = Not at all Feeling afraid as if something awful might happen: 0 = Not at all Total KELLIE-7 score (0-4 normal; 5-9 mild; 10-14 moderate; 15-21 severe): 0 Source: Developed by Drs. Quincy Alvarez, Bernie Calloway, Bi Li and colleagues, with an educational sherlyn from [employer]. Review of Systems Const Details: Positives besides what was mentioned in HPI are in BOLD Constitutional: No Weight Change, No Fever, No Chills, No Night Sweats, No Fatigue, No Malaise ENT/Mouth: No Hearing Changes, No Ear Pain, No Nasal Congestion, No Sinus Pain, No Hoarseness, No sore throat, No Rhinorrhea, No Swallowing Difficulty Eyes: No Eye Pain, No Swelling, No Redness, No Foreign Body, No Discharge, No Vision Changes Cardiovascular: No Chest Pain, No SOB, No PND, No Dyspnea on Exertion, No Orthopnea, No Claudication, No Edema, No Palpitations Respiratory: No Cough, No Sputum, No Wheezing, No Smoke Exposure, No Dyspnea Gastrointestinal: No Nausea, No Vomiting, No Diarrhea, No Constipation, No Pain, No Heartburn, No Anorexia, No Dysphagia, No Hematochezia, No Melena, No Flatulence, No Jaundice Genitourinary: No Dysmenorrhea, No DUB, No Dyspareunia, No Dysuria, No Urinary Frequency, No Hematuria, No Urinary Incontinence, No Urgency, No Flank Pain, No Urinary Flow Changes, No Hesitancy Musculoskeletal: No Arthralgias, No Myalgias, No Joint Swelling, No Joint Stiffness, No Back Pain, No Neck Pain, No Injury History Skin: No Skin Lesions, No Pruritis, No Hair Changes, No Breast/Skin Changes, No Nipple Discharge Neuro: No Weakness, No Numbness, No Paresthesias, No Loss of Consciousness, No Syncope, No Dizziness, No Headache, No Coordination Changes, No Recent Falls Psych: No Anxiety/Panic, No Depression, No Insomnia, No Personality Changes, No Delusions, No Rumination, No SI/HI/AH/VH, No Social Issues, No Memory Changes, No Violence/Abuse Hx., No Eating Concerns Heme/Lymph: No Bruising, No Bleeding, No Transfusions History, No Lymphadenopathy Endocrine: No Polyuria, No Polydipsia, No Temperature Intolerance Physical exam (Primary Care) Vital Signs: Last Vital Signs Pulse 90 07/17/25 15:00 BP 102/64 07/17/25 15:00 Pulse Ox 99 07/17/25 15:00 Oxygen Delivery Method Room Air 07/17/25 15:00 BMI result Body Mass Index 21.7 Tobacco/Smoking Status: Tobacco use Status Tobacco use date assessed 03/15/24 07/17/25 15:04 Patient Tobacco Use Status Former Tobacco user 07/17/25 15:04 Tobacco use type Cigarette 07/17/25 15:04 e-Cigarette/Vaping Use Never Used 07/17/25 15:04 PHQ-9: PHQ-9 Score PHQ-9: Total score 0 07/17/25 15:04 Thrive Assessment: Date of Thrive Assessment Date Thrive assessed 03/15/24 07/17/25 15:04 Currently or been in a relationship where the following occur: I choose not to answer Const Other: Pertinent findings are in BOLD GENERAL APPEARANCE NAD, activity normal for age, well developed/ well nourished, no cyanosis, pallor, or diaphoresis. EYES lids/conjunctiva normal. EARS/NOSE/THROAT Mucous membranes moist, nares normal, lips/teeth normal uvula midline without oral pharyngeal erythema, exudate or swelling TMs normal bilaterally. No lymphangitis/lymphedema. HEAD/NECK normocephalic atraumatic, no facial trauma, neck is supple. RESPIRATORY respiratory effort normal, speaks in full sentences, no tripod position, no accessory muscle use. Lungs clear to auscultation without rhonchi, wheezes, rales CARDIAC Regular rate and rhythm, no edema. ABDOMINAL Soft, ND/NT. No evidence of fluid wave. No pulsatile masses on exam, rebound tenderness, Hall sign or pain over Mcburney's point. MUSCLES/EXTREMITIES No abnormal range of motion, no swelling. SKIN Warm, pink and dry. No rashes, dermatoses, petechiae or lesions. NEUROLOGICAL Speech is clear and appropriate. Normal level of consciousness. Gait and coordination are normal. 5/5 strength in all extremities. PSYCH Normal mood and affect. Judgement/competence is appropriate Coding Level of Care Code Est Pt Level 3 (06686) Diagnoses Chronic cough R05.3 Assessment & Plan Assessment & Plan (1) Chronic cough: Code(s): R05.3 - Chronic cough Category: Medical Plan: I recommended Claritine, Flonse and Robitussin. The patient was hesitant about starting these medications due to concerns regarding ocean transportation intermediary effects. She will read about them online and get the as OTC in case she is convinced to take them. No signs or symptoms of acid reflux. Plan During the consultation, I discussed with the patient the likely diagnosis of post-viral cough and the management options available, including the use of [id number] cough medications and allergy medications for symptomatic relief. We also talked about the potential benefits of using Flonase to manage her allergic rhinitis symptoms. I advised her to monitor her swollen lymph nodes and to inform her primary care physician during her next visit. The patient expressed concerns about the long-term use of allergy medications, and I reassured her about the safety of short-term use.
--- OUTSIDE RECORDS SUMMARY | 2025-07-17 18:29 | XMS_ITS | Patient Health Record ---
Author Organization [facility] Address [address] [place] [address] Care Team Providers Care Toe Lining Closer Name Role Phone Torri (RETIRED) Cesar GAMEZ Primary Care Provide r Unavailable Mal Frye Jr Unavailable Reason For Referral No Information Plan Of Treatment No Information Insurance Providers Payer Name Payer Address Payer Phone Subscriber Number Group Number Insured Name Patient Relationship to Insured Coverage Start Date Coverage End Date [facility] [address] [address] [place], [place] [id number] JOSUE NELSON Self - patient is the insured [facility] Plan DON'T USE [address] [place] [address] [id number] JOSUE NELSON Self - patient is the insured Medical (General) History Medical History History ICD Code plantar fasciitis rosacea vitiligo Surgical History Surgery Date(Month/Year) dilatation and curettage
== END 2025-07-30 12:06 | disposition home or self-care (01) ==
LOC: HO.HMCH 14:55
PROVIDERS: PCP Internal Medicine; Visit Provider Internal Medicine
DX: R05.3 Chronic cough (principal)

== ENCOUNTER 2025-07-22 06:13 | Outpatient (REF) | payer OTHER, MEDICAID, SELFPAY ==
--- OUTSIDE RECORDS SUMMARY | 2025-07-22 06:16 | XMS_ITS | Patient Health Record ---
Author Organization [facility] Address [address] [place] [address] Care Team Providers Care Psychology Technician Name Role Phone Torri (RETIRED) Cesar GAMEZ Primary Care Provide r Unavailable Mal Frye Jr Unavailable Reason For Referral No Information Plan Of Treatment No Information Insurance Providers Payer Name Payer Address Payer Phone Subscriber Number Group Number Insured Name Patient Relationship to Insured Coverage Start Date Coverage End Date [facility] [address] [address] [place], [place] [id number] JOSUE NELSON Self - patient is the insured [facility] Plan DON'T USE [address] [place] [phone] [id number] JOSUE NELSON Self - patient is the insured Medical (General) History Medical History History ICD Code plantar fasciitis rosacea vitiligo Surgical History Surgery Date(Month/Year) dilatation and curettage
[2025-07-22 06:55] LABS: MANUAL DIFF FLAG NO
[2025-07-22 07:37] LABS: Hematocrit 35.9 % (37.0-47.0); Hemoglobin 11.7 g/dl (12.0-16.0); Imm Gran Abs Auto 0.03 X10*3/uL (0.00-0.03); Imm Gran Pct Auto 0.3 % (0.0-0.4); Lymphocytes Absolute Auto 2.9 X10*3/uL (1.2-4.9); Mean Corpuscular HGB Conc 32.6 g/dl (31.0-35.0); Mean Corpuscular Hemoglobin 30.2 pg (27.0-33.0); Mean Corpuscular Volume 92.5 fL (80.0-98.0); NRBC Abs Auto 0.000 X10*3/uL (0.0-0.012); NRBC Pct Auto 0.0 /100WBC (0.0-0.2); Platelet Count 291 X10*3/uL (160-400); Red Blood Count 3.88 X10*6/uL (4.20-5.50); White Blood Count 8.8 X10*3/uL (4.8-10.8)
[2025-07-22 08:19] LABS: Alanine Aminotransferase 12 U/L (0-31); Albumin Level 4.4 g/dL (3.5-5.0); Alkaline Phosphatase 72 U/L (39-117); Anion Gap 10 (12-20); Aspartate Amino Transferase 15 U/L (5-31); Blood Urea Nitrogen 15 mg/dL (9-16); Calcium 9.3 mg/dL (8.4-10.2); Carbon Dioxide 28 mmol/L (22-29); Chloride 106 mmol/L (96-108); Estimated Glomerular Filt Rate > 60; Potassium 3.8 mmol/L (3.3-5.1); Sodium 140 mmol/L (135-145); Total Protein 6.9 g/dL (6.5-8.0)
[2025-07-22 08:36] LABS: Free T4 (Free Thyroxine) 0.88 ng/dL (0.71-1.85); Thyroid Stimulating Hormone 0.80 uIU/mL (0.32-4.0)
[2025-07-22 08:37] LABS: Folate 6.9 ng/mL (> or = 4.0); Vitamin B12 451 pg/mL (200-900)
[2025-07-23 09:28] LABS: Follicle Stimulating Hormone 16.6 mIU/mL
[2025-07-23 13:39] LABS: Immunoglobulin G Subclass 1 449 mg/dL (382-929); Immunoglobulin G Subclass 2 368 mg/dL (241-700); Immunoglobulin G Subclass 3 36 mg/dL (22-178); Immunoglobulin G Subclass 4 4.1 mg/dL (4-86); Immunoglobulin G Total 864 mg/dL (600-1640)
[2025-07-23 17:29] LABS: Epstein Barr Virus Early Ag Ab <9.00 U/mL
[2025-07-23 18:48] LABS: Thyroglobulin Antibodies <1 IU/mL (< or = 1)
[2025-07-25 01:08] LABS: Iodine, Serum/Plasma 45 mcg/L (52-109); Magnesium, RBC 6.0 mg/dL (4.0-6.4)
[2025-07-27 15:03] LABS: Testosterone, Free 1.4 pg/mL (0.1-6.4)
[2025-08-01 04:39] LABS: Estradiol Free 1.79 pg/mL; Estradiol, Ultrasensitive 101 pg/mL
== END 2025-07-22 06:14 | disposition home or self-care (01) ==
LOC: HO.LAB 06:13
PROVIDERS: PCP Internal Medicine; Visit Provider Nurse Practitioner Family
DX: E03.8 Other specified hypothyroidism (principal); E61.9 Deficiency of nutrient element, unspecified; N95.8 Other specified menopausal and perimenopausal disorders; R53.83 Other fatigue; Z01.84 Encounter for antibody response examination
CPT/HCPCS: 36415; 80053; 82024; 82533; 82607; 82627; 82642; 82670; 82681; 82746; 82784; 83001; 83002; 83735; 83789; 83921; 84402; 84403; 84439; 84443; 84481; 85025; 86376; 86663; 86800

== ENCOUNTER 2025-07-26 11:56 | Day surgery (SDC) | payer OTHER, MEDICAID, SELFPAY ==
--- OUTSIDE RECORDS SUMMARY | 2025-07-23 12:13 | XMS_ITS | Patient Health Record ---
Author Organization [facility] Address [address] [place] [address] Care Team Providers Care Lining Caser Name Role Phone Torri (RETIRED) Cesar GAMEZ Primary Care Provide r Unavailable Mal Frye Jr Unavailable Reason For Referral No Information Plan Of Treatment No Information Insurance Providers Payer Name Payer Address Payer Phone Subscriber Number Group Number Insured Name Patient Relationship to Insured Coverage Start Date Coverage End Date [facility] [address] [address] [place], [place] [id number] JOSUE NELSON Self - patient is the insured [facility] Plan DON'T USE [address] [place] [id number] JOSUE NELSON Self - patient is the insured Medical (General) History Medical History History ICD Code plantar fasciitis rosacea vitiligo Surgical History Surgery Date(Month/Year) dilatation and curettage
--- NOTE | 2025-07-24 12:18 | P.CONAN_ITS ---
Documented by User: Althea Lagunas NP 07/24/25 12:18 HPI - Anesthesia Eval Consult details Narrative: 44yo F for Upper Endoscopy and Colonoscopy [facility] Active Problems Active Problems: All Active Problems (Updated 05/02/25 @ 00:00 by Selvin Perkins) Acquired hypothyroidism (Acute) Abdominal bloating (Acute) Adult general medical exam (Acute) Screening for diabetes mellitus (Acute) Screening for hyperlipidemia (Acute) Left shoulder pain (Acute) Polyarthralgia (Acute) Right elbow pain (Acute) Chronic cough (Acute) Chronic right shoulder pain (Acute) GERD (gastroesophageal reflux disease) (Acute) Dysphagia (Acute) Colon cancer screening (Acute) Barretts esophagus (Acute) Oropharyngeal dysphagia (Acute) Hypothyroidism (Acute) Rosacea (Acute) Vitiligo (Acute) Past Medical History Medical History Acquired hypothyroidism Multiple gastric ulcers Post concussion syndrome Family History Family History Mother Diabetes Heart disease Heart failure Father Heart failure Heart disease Paternal Grandmother Diabetes Prostate CA Paternal Uncle Prostate CA Surgical History Surgical History (Updated 07/26/25 @ 12:52 by Smitha Llanes RN) H/O colonoscopy H/O dilation and curettage (~1999) Hx of endoscopy (~07/2017) Social History Social History Household Members: None Housing: House Alcohol intake: never Patient Tobacco Use Status: Former Tobacco user Tobacco use type: Cigarette e-Cigarette/Vaping Use: Never Used Second Hand Smoke Exposure: Yes Use of substances other than those prescribed or required for medical reasons: No Are you DNR?: No Advance Directives: No Advance Directives Information Provided: Yes : No Poor oral hygiene: No service: No Current occupational status: student Current occupational exposures/hazards: No Cognitive needs: No Hearing needs: No Vision needs: No Meds Allergies Allergy/AdvReac Type Severity Reaction Status Date / Time CRANBERRY JUICE Allergy Severe HIVES Uncoded 05/01/25 05:44 Home Medications ?Medication ?Instructions ?Recorded ?Confirmed ?Last Taken ?Type thyroid (pork) 15 mg tablet 75 mg PO DAILY 07/16/2107/26/25 History ([place] Thyroid) Assessment and Plan Assessment Anesthesia Assessment: Chart Reviewed Documented by User: Yesenia Mckenna MD 07/26/25 13:08 [facility] Past Medical History Medical History Acquired hypothyroidism Multiple gastric ulcers Post concussion syndrome Family History Family History Mother Diabetes Heart disease Heart failure Father Heart failure Heart disease Paternal Grandmother Diabetes Prostate CA Paternal Uncle Prostate CA Family history of problems with anesthesia: No Surgical History Surgical History (Updated 07/26/25 @ 12:52 by Smitha Llanes RN) H/O colonoscopy H/O dilation and curettage (~1999) Hx of endoscopy (~07/2017) History of Problems with Anesthesia: No Social History Social History Household Members: None Housing: House Alcohol intake: never Patient Tobacco Use Status: Former Tobacco user Tobacco use type: Cigarette e-Cigarette/Vaping Use: Never Used Second Hand Smoke Exposure: Yes Use of substances other than those prescribed or required for medical reasons: No Are you DNR?: No Advance Directives: No Advance Directives Information Provided: Yes : No Poor oral hygiene: No service: No Current occupational status: student Current occupational exposures/hazards: No Cognitive needs: No Hearing needs: No Vision needs: No Meds Allergies Allergy/AdvReac Type Severity Reaction Status Date / Time CRANBERRY JUICE Allergy Severe HIVES Uncoded 05/01/25 05:44 Home Medications ?Medication ?Instructions ?Recorded ?Confirmed ?Last Taken ?Type thyroid (pork) 15 mg tablet 75 mg PO DAILY 07/16/2107/26/25 History ([place] Thyroid) Exam Airway Mallampati Class: II TM Dist: >3cm Neck ROM: Full Heart: rrr Lungs: cta Assessment and Plan Assessment Anesthesia Assessment: Anesthesia Plan Discussed Final Anesthetic Review Family History of Problems with Anesthesia: No History of Problems with Anesthesia: No NPO: Yes ASA Class: II Final Preanesthetic Review: No Changes in Pt Med Stat, Meds/Allgs Chart Reviewed and Consent Obtained/Reviewed Patient Risk: Low Procedure Risk: Low Anesthetic Plan Anesthetic Plan: MAC: Disposition: Standard PACU
[2025-07-24 13:35] VITALS: BMI 23.1
[2025-07-26 12:53] VITALS: BMI 21.3
[2025-07-26 13:00] LABS: UPreg QC Valid YES
[2025-07-26 13:03] VITALS: BP 120/73; PULSE 82; RESP 16; TEMP 36.6; O2SAT 99
--- NOTE | 2025-07-26 13:06 | MHC.SHP ---
Pre-Procedural Eval Section A - 24 Hr Update-Section A only Date of Service: 07/26/25 The patient is an INPATIENT: No The patient has been examined within 24 hours of the surgical procedure. The History & Physical has been completed within 30 days and I have reviewed it.: No Section B - Complete if H&P > 30 days Chief Complaint: screening, Meeks's esophagus, GERD Relevant Family History (Specify if Yes): No Relevant Social History: Tobacco Use Present Medications: see Short Stay Collaborative assessment Medical History: Significant History (Multiple gastric ulcers Post concussion syndrome) History of Previous Operations: Relevant previous surgery/procedure and date(s) (H/O dilation and curettage (~1999) Hx of endoscopy (~07/2017)) Allergies: Allergies Allergy/AdvReac Type Severity Reaction Status Date / Time CRANBERRY JUICE Allergy Severe HIVES Uncoded 05/01/25 05:44 Review of Systems Sugical H&P ROS: Negative: Constitution, Cardiovascular, Respiratory and Gastrointestinal Exam Surgical H&P Exam: Normal: Heart, Normal: Lungs, Normal: Extremities and Normal: Abdomen Plan Diagnosis/Plan: Unchanged I have reviewed the history and physical and performed a pertinent physical examination on my patient. No changes have occurred unless specified. Time Spent With Patient Time: Total time managing care of this patient today ____ minutes.
[2025-07-26] MEDS: Lactated Ringers 1,000 ML 100 ML IVCONT (13:33)
--- NOTE | 2025-07-26 14:40 | HO.OPN-COLON ---
Colonoscopy Operative Note Operative Note Date of Service: 07/26/25 Narrative: FLEXIBLE TRANSORAL UPPER GASTROINTESTINAL ENDOSCOPY WITH BIOPSIES AND COLONOSCOPY TILL CECUM WITH BIOPSIES Pre-op diagnosis: Colon cancer screening, GERD, rectal bleeding Post-op diagnosis: GERD, Esophagitis, Gastritis, Diverticulosis, hemorrhoids Endoscopist:Theron Liang MD Anesthesia:?MAC UPPER ENDOSCOPY Consent: Indications for the procedure and potential complications of bleeding, perforation, reaction to medications and missed diagnosis were discussed with the patient and informed consent was obtained. Instrument: Olympus GIF H 190 mid size upper endoscope Monitoring: Vital signs and clinical assessment, continuous EKG monitoring, Pulse oximetry, Carbon Dioxide monitoring and blood pressure monitoring were done throughout the procedure. Procedure: The patient was placed in the left lateral decubitis position and pre-procedure medications were administered and a bite block was placed. The endoscope was inserted into the mouth and advanced under direct vision to the third part of duodenum. A careful inspection was made as the upper endoscope was withdrawn including a retroflexed examination of the proximal stomach; Findings and interventions are described below. Findings: Larynx: Normal Esophagus: Tortuous esophagus with increased tertiary contractions without stricture or ring. Focal 3 cms area of white exudate in the distal esophagus - brushings were obtained to check for [place] GE junction at 35 cms. Irregular Z line - biopsies were obtained to check for Meeks's metaplasia. Samples obtained for JAVIER. Stomach: Mild diffuse gastric erythema. Mapping biopsies were obtained from the gastric body and antrum for follow-up of intestinal metaplasia. Grade 2 flap valve on retroflexed examination of the cardia. Duodenum: Normal bulb and descending duodenum. Biopsies were obtained from 3rd part of duodenum to check for celiac sprue. Intervention: Biopsies as noted above COLONOSCOPY PROCEDURE NOTE Instrument: Olympus PCF H 190 L variable stiffness pediatric colonoscope Monitoring: Vital signs and clinical assessment, intermittent blood pressure monitoring, continuous EKG monitoring, Pulse oximetry and Carbon Dioxide monitoring were done throughout the procedure. Please see anesthesia flowsheet. Colon withdrawl time was 12 minutes. Procedure: The patient was placed in the left lateral decubitis position and pre-procedure medications were administered. After a digital rectal examination of the ano-rectum, the video colonoscope was inserted into the rectum and advanced through the colon to the cecum. The colonoscope was slowly withdrawn in a retrograde panoramic fashion and the colon mucosa was carefully examined including a retroflexed view of the rectum. Findings and interventions are described below. Procedure Difficulty: without difficulty Findings: Terminal Ileum: Not evaluated Cecum: Normal Ascending Colon: Moderate diverticulosis scattered throughout the colon Transverse Colon: Moderate diverticulosis scattered throughout the colon Descending Colon: Moderate diverticulosis scattered throughout the colon Sigmoid Colon: Moderate diverticulosis Rectum: Normal Ano-rectum: Moderate internal hemorrhoids Colon preparation: Good after copious irrigation. [place] Bowel Preparation Scale Right colon; 2 Transverse colon: 2 Left colon; 2 (0 = Unprepared colon segment with mucosa not seen due to solid stool that cannot be cleared. 1 = Portion of mucosa of the colon segment seen, but other areas of the colon segment not well seen due to staining, residual stool and/or opaque liquid. 2 = Minor amount of residual staining, small fragments of stool and/or opaque liquid, but mucosa of colon segment seen well. 3 = Entire mucosa of colon segment seen well with no residual staining, small fragments of stool or opaque liquid) Impression and Post Procedure Diagnosis: Endoscopy Findings: ESOPHAGUS: Focal 3 cms area of white exudate in the distal esophagus - brushings were obtained to check for [place] GE junction at 35 cms. Irregular Z line - biopsies were obtained to check for Meeks's metaplasia. STOMACH: Mild diffuse gastric erythema. Mapping biopsies were obtained from the gastric body and antrum for follow-up of intestinal metaplasia. DUODENUM: Normal - biopsies were obtained to check for celiac sprue Colonoscopy Findings: No polyps were detected Biopsies were obtained from right and left colon to check for microscopic colitis Moderate diverticulosis seen in the entire colon Moderate hemorrhoids on retroflexed exam. Plan: Pt advised to schedule a FU appointment in the GI clinic with Dr Liang Repeat Colonoscopy in 10 years if colon biopsies are normal. A summary of above findings and relevant handouts were given to the patient. BIOPSIES SHOWED: A. Small bowel, biopsy: Small intestinal mucosa within normal limits. B. Stomach, antrum lesser curvature, biopsy: Antral-type mucosa with mild chronic inactive inflammation; no Helicobacter organisms seen. C. Stomach, antrum greater curvature, biopsy: Antral-type mucosa with mild chronic inactive inflammation; no Helicobacter organisms seen. D. Stomach, body greater curvature, biopsy: Oxyntic mucosa within normal limits; no Helicobacter organisms seen. E. Stomach, body lesser curvature, biopsy: Oxyntic mucosa within normal limits; no Helicobacter organisms seen. F. Stomach, angularis, biopsy: Antral-type mucosa with mild chronic inactive inflammation; no Helicobacter organisms seen. G. EG junction, biopsy: - Cardiac-type mucosa with moderate chronic active inflammation; no intestinal metaplasia seen. - Active esophagitis (few eosinophils and neutrophils). H. Colon, right, biopsy: Colonic mucosa within normal limits. I. Colon, left, biopsy: Colonic mucosa within normal limits. Letter sent to the patient with biopsy results. Patient was placed on the colonoscopy recall list for repeat EGD (intestinal metaplasia on past EGD) and colonoscopy in 10 years.
[2025-07-26 15:07] VITALS: BP 101/63; PULSE 69; RESP 16; TEMP 36.1; O2SAT 99
[2025-07-26 15:22] VITALS: BP 108/62; PULSE 60; RESP 16; TEMP 36.2; O2SAT 100
== END 2025-07-26 15:58 | disposition home or self-care (01) ==
PROVIDERS: Nurse Practitioner; PCP Internal Medicine; Visit Provider Internal Medicine Gastroenterology
PROC: (CPT 45380; principal; 2025-07-26 13:50)
DX: K62.5 Hemorrhage of anus and rectum (principal); K59.04 Chronic idiopathic constipation; R14.0 Abdominal distension (gaseous); K57.30 Diverticulosis of large intestine without perforation or abscess without bleeding; K64.8 Other hemorrhoids; K22.89 Other specified disease of esophagus; K22.70 Barrett's esophagus without dysplasia; R13.12 Dysphagia, oropharyngeal phase; K21.9 Gastro-esophageal reflux disease without esophagitis; K29.50 Unspecified chronic gastritis without bleeding; K20.80 Other esophagitis without bleeding; Z87.11 Personal history of peptic ulcer disease; E03.9 Hypothyroidism, unspecified; L80 Vitiligo; F07.81 Postconcussional syndrome; L71.9 Rosacea, unspecified; Z87.891 Personal history of nicotine dependence; Z79.899 Other long term (current) drug therapy
CPT/HCPCS: 45380; 43239; 81025; 87102; 87106; 88305; 88313; 88342; J2003; J2704

== ENCOUNTER → 2025-07-26 11:56 | Outpatient (BNV) | payer OTHER, MEDICAID, SELFPAY | PROVIDERS: PCP Internal Medicine; Visit Provider Internal Medicine Gastroenterology | DX: Z12.11 Encounter for screening for malignant neoplasm of colon (principal); K62.5 Hemorrhage of anus and rectum; K57.90 Diverticulosis of intestine, part unspecified, without perforation or abscess without bleeding; K64.8 Other hemorrhoids; K21.00 Gastro-esophageal reflux disease with esophagitis, without bleeding; K29.70 Gastritis, unspecified, without bleeding | CPT/HCPCS: 43239; 45380 ==

== ENCOUNTER 2025-07-27 22:26 | Inpatient (IN) | payer OTHER, MEDICAID, SELFPAY ==
--- NOTE | 2025-07-27 | ECG_ITS ---
Test Reason : chest pain Blood Pressure : */* mmHG Vent. Rate : 117 BPM Atrial Rate : 117 BPM P-R Int : 180 ms QRS Dur : 76 ms QT Int : 310 ms P-R-T Axes : 72 4 23 degrees QTcB Int : 432 ms Sinus tachycardia Otherwise normal ECG When compared with ECG of 24-May-2017 21:05, No significant change was found Referred By: Generic ED Physician Electronically Signed By: Toi Malik
--- NOTE | ~2025-07-27 | CT_ITS ---
CLINICAL HISTORY: perforation?? s p EGD and colonoscopy CT abdomen and pelvis with contrast Comparison: None provided Findings: There is minimal dependent atelectasis. There is a 4 mm nodule in the right lower lobe. There is nonspecific periportal edema. There is no focal hepatic lesion. Gallbladder is contracted. The pancreas, spleen, and adrenal glands are unremarkable. There is a tiny left renal cyst. Right kidney is unremarkable. There are a few diverticula in the left hemicolon. The appendix is normal. The remainder of the gastrointestinal tract is unremarkable. There is no free air. There is trace free fluid in the cul-de-sac. The aorta and IVC are normal. There are no enlarged lymph nodes. Uterus and adnexa are unremarkable. The bladder is unremarkable. There is no fracture or suspicious lytic or sclerotic lesion. IMPRESSION: 1. No bowel perforation. 2. Nonspecific periportal edema. 3. 4 mm nodule in the right lower lobe most likely benign. Follow-up recommendations based on Fleischner Society guidelines as below: Single solid lung nodule < 6 mm: In a low-risk patient, no routine follow-up imaging is recommended. In a high-risk patient, a non-contrast Chest CT at 12 months is optional. If performed and the nodule is stable at 12 months, no further follow-up is recommended. These guidelines do not apply to patients younger than 35 years, immunocompromised patients, and patients with cancer. F/U in patients with significant comorbidities as clinically warranted. For lung cancer screening, adhere to Lung-RADS guidelines. Reference: Radiology. 2017 Brad; 284(1):228-24. This document has been electronically signed by: Rio Dowd MD on 07/28/2025 02:40:57
--- NOTE | ~2025-07-27 | US_ITS ---
CLINICAL HISTORY: liver, GB, CBD - ABD PAIN US abdomen limited with color Doppler Comparison: CT/REG/SR - CT ABDOMEN PELVIS W IV CON - 07/28/25 01:57 EDT Findings: Liver is borderline enlargedwith normal echotexture. Periportal edema. Right lobe length 18.7 cm. No focal hepatic masses. Common duct 4.0 mm diameter. Partially contracted gallbladder.No gallstones.Can not exclude gallbladder wall thickening. No pericholecystic fluid. No sonographic Hall sign. Main portal vein antegrade. Impression: 1. Borderline hepatomegaly. Periportal edema. 2. Contracted gallbladder without evidence of gallstones. 3. No biliary dilatation This document has been electronically signed by: Stephan Lopez MD on 07/28/2025 05:36:29
--- NOTE | ~2025-07-27 | NM_ITS ---
EXAMINATION: NM HEPATOBILIARY WITHOUT PHARM HISTORY: +[facility]. TECHNIQUE: An hepatobiliary scan was performed following intravenous administration of 5.0 mCi technetium 99m-mebrofenin. Images were obtained to 1 hour. COMPARISON: Comparison is made with the prior examination dated 07/08/2017. Correlation is also made with abdominal CT and ultrasound examinations dated 07/28/2025. FINDINGS: There is normal uptake and excretion of the radiopharmaceutical by the liver. Gallbladder activity is noted at 20 minutes. Common bile duct activity is seen at 8 minutes. Small bowel activity is seen at 8 minutes. NM/NM hepatobiliary wo pharm IMPRESSION: Normal hepatobiliary scan. No evidence of cystic duct obstruction. Electronically signed by: Quincy Boswell MD 07/29/2025 09:39 AM EDT
[2025-07-27 22:29] VITALS: BP 135/78; PULSE 123; RESP 20; TEMP 36.7; O2SAT 100; BMI 21.3
--- OUTSIDE RECORDS SUMMARY | 2025-07-27 22:49 | XMS_ITS | Patient Health Record ---
Author Organization [facility] Address [address] [place] [address] Care Team Providers Care Rubber Curer Name Role Phone Torri (RETIRED) Cesar GAMEZ Primary Care Provide r Unavailable Mal Frye Jr Unavailable Reason For Referral No Information Plan Of Treatment No Information Insurance Providers Payer Name Payer Address Payer Phone Subscriber Number Group Number Insured Name Patient Relationship to Insured Coverage Start Date Coverage End Date [facility] [address] [address] [place], [place] [id number] JOSUE NELSON Self - patient is the insured [facility] Plan DON'T USE [address] [place] [id number] JOSUE NELSON Self - patient is the insured Medical (General) History Medical History History ICD Code plantar fasciitis rosacea vitiligo Surgical History Surgery Date(Month/Year) dilatation and curettage
[2025-07-27 23:07] LABS: Hematocrit 35.6 % (37.0-47.0); Hemoglobin 12.2 g/dl (12.0-16.0); Imm Gran Abs Auto 0.05 X10*3/uL (0.00-0.03); Imm Gran Pct Auto 0.3 % (0.0-0.4); Lymphocytes Absolute Auto 1.6 X10*3/uL (1.2-4.9); MANUAL DIFF FLAG NO; Mean Corpuscular HGB Conc 34.3 g/dl (31.0-35.0); Mean Corpuscular Hemoglobin 30.7 pg (27.0-33.0); Mean Corpuscular Volume 89.4 fL (80.0-98.0); NRBC Abs Auto 0.000 X10*3/uL (0.0-0.012); NRBC Pct Auto 0.0 /100WBC (0.0-0.2); Platelet Count 304 X10*3/uL (160-400); Red Blood Count 3.98 X10*6/uL (4.20-5.50); White Blood Count 15.7 X10*3/uL (4.8-10.8)
[2025-07-27 23:28] LABS: Alanine Aminotransferase 28 U/L (0-31); Albumin Level 4.4 g/dL (3.5-5.0); Alkaline Phosphatase 88 U/L (39-117); Anion Gap 12 (12-20); Aspartate Amino Transferase 44 U/L (5-31); Blood Urea Nitrogen 10 mg/dL (9-16); Calcium 9.4 mg/dL (8.4-10.2); Carbon Dioxide 27 mmol/L (22-29); Chloride 104 mmol/L (96-108); Creatinine Clr Calc Pharmacy 91.5; Estimated Glomerular Filt Rate > 60; Lipase 32 U/L (8-78); Magnesium 1.8 mg/dL (1.6-2.6); Potassium 4.0 mmol/L (3.3-5.1); Sodium 139 mmol/L (135-145); Total Protein 7.2 g/dL (6.5-8.0)
[2025-07-27 23:43] VITALS: BP 106/73; PULSE 110; RESP 18; TEMP 37.4; O2SAT 98
[2025-07-28] VITALS (8 sets, daily range): BP systolic 91–141; BP diastolic 53–94; PULSE 62–95; RESP 16–20; TEMP 36.4–36.9; O2SAT 95–100; BMI 23.7
[2025-07-28 00:11] LABS: Appearance Urine Clear; Glucose Urine UA Negative (Negative); PH 5.5 (5.0-9.0); Specific Gravity - Urine 1.020 (1.005-1.025); UMIC TRIGGER UACC YES
[2025-07-28 00:13] LABS: UPreg QC Valid YES
[2025-07-28 00:17] LABS: UACC Culture Trigger YES
--- NOTE | 2025-07-28 00:33 | ED.GENADULT ---
HPI - General Adult General Chief complaint: Abdominal Pain Stated complaint: abd pain,yuli vilchis 07/26 Time Seen by Provider: 07/27/25 23:07 Source: patient Limitations: no limitations History of Present Illness HPI narrative: 44-year-old female with a history of known Meeks's esophagus, dysphagia, GERD, prior peptic ulcer, who is status post EGD and colonoscopy July [address] Lee, who presents with severe abdominal pain. Pain over upper abdomen, with radiation into chest and back. Patient describes her discomfort as a burning sensation. Associated nausea vomiting. Patient states her discomfort has progressed throughout the day. Denies diarrhea. Denies abdominal distention. Related Data Home Medications ?Medication ?Instructions ?Recorded ?Confirmed thyroid (pork) 15 mg tablet 75 mg PO DAILY 07/16/21 07/26/25 ([facility] Thyroid) Previous Rx's ?Medication ?Instructions ?Recorded tretinoin 0.025 % topical cream 1 appl topical BEDTIME #45 grams 03/15/24 hydrocortisone 2.5 % topical cream 1 appl ID BID-QID PRN hemorrhoids 07/26/25 with perineal applicator 30 days #30 grams psyllium husk 0.52 gram capsule 0.52 g PO BID 60 days #120 caps 07/26/25 ondansetron 4 mg disintegrating 4 mg PO Q8H PRN nausea and 07/28/25 tablet vomiting #10 tabs Allergies Allergy/AdvReac Type Severity Reaction Status Date / Time CRANBERRY JUICE Allergy Severe HIVES Uncoded 07/27/25 22:31 Review of Systems Review of Systems: Yes all other systems are reviewed and are negative Constitutional: Constitutional: Denies fatigue and Denies fever(s) Cardiovascular: Cardiovascular: Denies chest pain and Denies dyspnea Respiratory: Respiratory: Denies chest congestion, Denies cough and Denies dyspnea Gastrointestinal: Gastrointestinal: Reports abdominal pain, Denies bloating, Denies constipation, Denies diarrhea, Reports nausea and Reports vomiting Endocrine: Endocrine: Denies fatigue PMFSH Past Medical History Attestation statement: The following information was validated with the patient. Medical History (Updated 07/28/25 @ 00:37 by JULIA Aviles) Acquired hypothyroidism Multiple gastric ulcers Post concussion syndrome Surgical History (Updated 07/26/25 @ 12:52 by Smitha Llanes RN) H/O colonoscopy H/O dilation and curettage (~1999) Hx of endoscopy (~07/2017) Family History Family History Mother Diabetes Heart disease Heart failure Father Heart failure Heart disease Paternal Grandmother Diabetes Prostate CA Paternal Uncle Prostate CA Social History Social History Household Members: None Housing: House Alcohol intake: never Patient Tobacco Use Status: Former Tobacco user Tobacco use type: Cigarette e-Cigarette/Vaping Use: Never Used Second Hand Smoke Exposure: Yes Advance Directives: No Advance Directives Information Provided: No service: No Current occupational status: student Current occupational exposures/hazards: No Cognitive needs: No Hearing needs: No Vision needs: No Physical Exam ED Vital Signs: Vital Signs - 24 hr 07/27/25 22:29 07/27/25 23:43 07/28/25 02:00 Temperature 98.0 F 99.4 F 98.2 F Pulse Rate 123 H 110 H 95 Respiratory Rate 20 18 17 Blood Pressure 135/78 106/73 116/73 Pulse Oximetry 100 98 98 Oxygen Delivery Method Room Air Room Air Room Air 07/28/25 04:00 Temperature 98.3 F Pulse Rate 94 Respiratory Rate 16 Blood Pressure 115/79 Pulse Oximetry 97 Oxygen Delivery Method Room Air BMI result Body Mass Index 21.3 Const Other: Alert, ill-appearing appears very uncomfortable Orientation/consciousness: patient oriented x3 Resp Effort & Inspection: normal respiratory effort Cardio Other: Normal peripheral perfusion GI Other: Patient guarding against my exam with light palpation of the abdomen, with objective involuntary guarding, most prominent across upper abdomen Skin Other: Warm dry no rash Neuro General: patient oriented x3, gait normal, no focal motor deficits and CN's II-XI intact bilaterally Psych Other: Cooperative, Course Course Course Narrative: We will sign out to day team pending GI consult and final disposition Reevaluation(s) Reevaluation #1: Pain remains refractory, given she just had surgical procedure with biopsy, she has known Meeks's esophagus, I also reviewed the surgical report, her gastric lining is inflamed, I am avoiding Toradol. We will try famotidine and low-dose Versed. Reevaluation #2: Patient states the Versed just made her sleepy it did not help the pain, she does not feel any different after having famotidine, she is asking for more nausea medicine we will also try Carafate Consultations Consultation #1: Dr. Ramirez ..... Recommends obtaining an ultrasound of the right upper quadrant to rule out potential biliary pathology Time: 03:19 Consultation #2: per Dr. Ramirez.......US RUQ back.... Recommends [facility] admit and potential surgical consult Time: 05:43 Medications Administered Discontinued Medications Generic Name Dose Route Start Last Admin Trade Name Frejulia PRN Reason Stop Dose Admin Famotidine 20 mg 07/28/25 02:20 07/28/25 02:30 Famotidine/Pf 20 Mg/2 Ml Vial IVPUSH 07/28/25 02:21 20 mg ONCE ONE Administration Sodium Chloride 1,000 mls @ 999 mls/hr 07/27/25 23:15 07/28/25 00:27 Ns IV 07/28/25 00:15 Infused .Q1H1M NICO Infusion Acetaminophen 1,000 mg in 100 mls @ 400 mls/hr 07/27/25 23:17 07/27/25 23:50 Ofirmev IV 07/27/25 23:31 Infused ONCE ONE Infusion Iohexol 85 ml 07/28/25 02:01 07/28/25 02:01 Iohexol 350 Mg/Ml 100 Ml Infus..Btl IV 07/28/25 02:02 85 ml ONCE ONE Administration Midazolam HCl 2 mg 07/28/25 02:27 07/28/25 02:40 Midazolam Hcl 2 Mg/2 Ml Vial IVPUSH 07/28/25 02:28 2 mg ONCE ONE Administration Ondansetron HCl 4 mg 07/27/25 23:06 07/27/25 23:21 Ondansetron Hcl 4 Mg/2 Ml Vial IVPUSH 07/27/25 23:07 4 mg ONCE ONE Administration Ondansetron HCl 4 mg 07/28/25 03:40 07/28/25 03:51 Ondansetron Hcl 4 Mg/2 Ml Vial IVPUSH 07/28/25 03:41 4 mg ONCE ONE Administration Sucralfate 1 gm 07/28/25 03:18 07/28/25 03:51 Sucralfate Oral Suspension 1 Gm/10 Ml Oral.Susp PO 07/28/25 03:19 1 gm ONCE ONE Administration Medical Decision Making Medical Decision Making [facility] Narrative: 44-year-old female with a history of known Meeks's esophagus, dysphagia, GERD, prior peptic ulcer, who is status post EGD and colonoscopy [address] Lee, who presents with severe abdominal pain. Pain over upper abdomen, with radiation into chest and back. Patient describes her discomfort as a burning sensation. Associated nausea vomiting. Patient states her discomfort has progressed throughout the day. Denies diarrhea. Denies abdominal distention. Problem: Upper GI known pathology, recent EGD and colonoscopy History: Per patient I have considered the following differential diagnoses: Postsurgical complication, perforated bowel Plan: I am most concerned for potential bowel perforation given the nature of her symptoms, we will be obtaining a CT scan. The patient is very apprehensive about using certain medications; IE opiates, benzodiazepine. The patient would like to try IV Tylenol, Zofran and IV fluid. I have independently reviewed the following tests: Labs: Leukocytosis with left shift, not anemic, no electrolyte abnormality, not urine not infected, LFTs and lipase normal ICAL HISTORY: perforation?? s p EGD and colonoscopy CT abdomen and pelvis with contrast Comparison: None provided Findings: There is minimal dependent atelectasis. There is a 4 mm nodule in the right lower lobe. There is nonspecific periportal edema. There is no focal hepatic lesion. Gallbladder is contracted. The pancreas, spleen, and adrenal glands are unremarkable. There is a tiny left renal cyst. Right kidney is unremarkable. There are a few diverticula in the left hemicolon. The appendix is normal. The remainder of the gastrointestinal tract is unremarkable. There is no free air. There is trace free fluid in the cul-de-sac. The aorta and IVC are normal. There are no enlarged lymph nodes. Uterus and adnexa are unremarkable. The bladder is unremarkable. There is no fracture or suspicious lytic or sclerotic lesion. IMPRESSION: 1. No bowel perforation. 2. Nonspecific periportal edema. 3. 4 mm nodule in the right lower lobe most likely benign. Follow-up recommendations based on Fleischner Society guidelines as below: Single solid lung nodule < 6 mm: In a low-risk patient, no routine follow-up imaging is recommended. In a high-risk patient, a non-contrast Chest CT at 12 months is optional. If performed and the nodule is stable at 12 months, no further follow-up is recommended. These guidelines do not apply to patients younger than 35 years, immunocompromised patients, and patients with cancer. F/U in patients with significant comorbidities as clinically warranted. For lung cancer screening, adhere to Lung-RADS guidelines. Reference: Radiology. 2017 Apr; 284(1):228-24. Ultrasound right upper quadrant:Findings: Liver is borderline enlargedwith normal echotexture. Periportal edema. Right lobe length 18.7 cm. No focal hepatic masses. Common duct 4.0 mm diameter. Partially contracted gallbladder.No gallstones.Can not exclude gallbladder wall thickening. No pericholecystic fluid. No sonographic Hall sign. Main portal vein antegrade. Impression: 1. Borderline hepatomegaly. Periportal edema. 2. Contracted gallbladder without evidence of gallstones. 3. No biliary dilatation Lab Data 07/27/25 23:01 07/27/25 23:01 Labs: Lab Results 07/27/25 07/28/25 Range/Units 23:01 00:03 WBC 15.7 H (4.8-10.8) X10*3/uL RBC 3.98 L (4.20-5.50) X10*6/uL Hgb 12.2 (12.0-16.0) g/dl Hct 35.6 L (37.0-47.0) % MCV 89.4 (80.0-98.0) fL MCH 30.7 (27.0-33.0) pg MCHC 34.3 (31.0-35.0) g/dl RDW 11.8 (11.0-16.0) % Plt Count 304 (160-400) X10*3/uL MPV 10.6 (9.4-12.3) fL Immature Gran % (Auto) 0.3 (0.0-0.4) % Neut % (Auto) 88.7 H (45-73) % Lymph % (Auto) 9.9 L (20-40) % [place] % (Auto) 0.9 L (2-11) % Eos % (Auto) 0.1 (0-4) % Baso % (Auto) 0.1 (0-2) % Lymph # (Auto) 1.6 (1.2-4.9) X10*3/uL [place] # (Auto) 0.1 (0.1-1.2) X10*3/uL Eos # (Auto) 0.0 (0.0-0.4) X10*3/uL Baso # (Auto) 0.0 (0.0-0.2) X10*3/uL Abs Immat Gran (auto) 0.05 H (0.00-0.03) X10*3/uL Absolute Neuts (auto) 13.9 H (2.0-8.3) x10*3/uL Absolute Nucleated RBC 0.000 (0.0-0.012) X10*3/uL Nucleated RBC % (auto) 0.0 (0.0-0.2) /100WBC Sodium 139 (135-145) mmol/L Potassium 4.0 (3.3-5.1) mmol/L Chloride 104 (96-108) mmol/L Carbon Dioxide 27 (22-29) mmol/L Anion Gap 12 (12-20) BUN 10 (9-16) mg/dL Creatinine 0.75 (0.5-1.4) mg/dL Estim Creat Clear Calc 91.5 Estimated GFR > 60 Random Glucose 100 (60-115) mg/dL Calcium 9.4 (8.4-10.2) mg/dL Magnesium 1.8 (1.6-2.6) mg/dL Total Bilirubin 0.3 (0.0-1.0) mg/dL AST 44 H (5-31) U/L ALT 28 (0-31) U/L Alkaline Phosphatase 88 (39-117) U/L Total Protein 7.2 (6.5-8.0) g/dL Albumin 4.4 (3.5-5.0) g/dL Lipase 32 (8-78) U/L Beta HCG, Quant < 2 mIU/mL Urine Color Yellow Urine Appearance Clear Urine pH 5.5 (5.0-9.0) Ur Specific [place] 1.020 (1.005-1.025) Urine Protein Negative (Neg-Trace) mg/dL Urine Glucose (UA) Negative (Negative) mg/dL Urine Ketones Negative (Negative) mg/dL Urine Blood Trace H (Negative) Urine Nitrite Negative (Negative) Ur Leukocyte Esterase Trace H (Negative) Urine RBC 3-5 H (0-2) /HPF Urine WBC 6-10 H (0-5) /HPF Ur Squamous Epith Cells 0-2 (0-2) /HPF Urine Bacteria None Seen (None Seen) Hyaline Casts 0-2 (0-2) /LPF Urine Test NEGATIVE (NEGATIVE) Discharge Plan Discharge Clinical Impression: Abdominal pain Patient Disposition: Admitted As Inpatient Print Language: Macedonian
[2025-07-28] MEDS: iohexoL 350 MG/ML 100 ML INFUS..BTL 85 ML IV (02:01)
[2025-07-28] MEDS: Sucralfate Oral Suspension 1 GM/10 ML ORAL.SUSP PO (03:51)
--- OUTSIDE RECORDS SUMMARY | 2025-07-28 07:27 | XMS_ITS | Patient Health Record ---
Author Organization [facility] Address [address] [place] [address] Care Team Providers Care Chicken Handler Name Role Phone Torri (RETIRED) Cesar GAMEZ Primary Care Provide r Unavailable Mal Frye Jr Unavailable Reason For Referral No Information Plan Of Treatment No Information Insurance Providers Payer Name Payer Address Payer Phone Subscriber Number Group Number Insured Name Patient Relationship to Insured Coverage Start Date Coverage End Date [facility] [address] [address] [place], [place] [id number] JOSUE NELSON Self - patient is the insured [facility] Plan DON'T USE [address] [id number] JOSUE NELSON Self - patient is the insured Medical (General) History Medical History History ICD Code plantar fasciitis rosacea vitiligo Surgical History Surgery Date(Month/Year) dilatation and curettage
--- NOTE | 2025-07-28 07:39 | HO.NURTONUR ---
Pt is a 44yo female came in for sudden onset burning pain in abdomen, chest, and back. +nausea/vomiting. Worsening throughout the day. Pt had an EGD and colonoscopy on Tuesday. CT abd showed borderline hepatomegaly but negative for perforation. Pt to be admitted and seen by GI. Possible HIDA scan. Pt was very reluctant to take any medications (opiates/benzos) or have a CT scan but was in a lot of discomfort and anxious. Wanting to leave AMA. Pt eventually agreed to CT scan and medications. Pt got some relief from pepcid and morphine. Currently in NAD. PMH- Barrets esophagus, GERD, peptic ulcer. 20gRFA. afebrile, VSS. Pending GI consult.
--- NOTE | 2025-07-28 08:53 | P.HPHOSP_ITS ---
History of Present Illness Date of Service: 07/28/25 Chief Complaint: abd pain 44F PMH hypothyroid, presented with abdominal pain. Patient underwent EGD and colonoscopy 07/26/2025, EGD showed esophagitis and gastritis, colonoscopy showed diverticulosis and hemorrhoids biopsies were taken. Day after procedure patient to felt epigastric abdominal pain radiating to chest, burning in nature, intractable, poor appetite, nausea and vomiting. In ED noted to have leukocytosis of 15.7, CT abdomen showed nonspecific periportal edema. Review of Systems 2 Review of Systems: Yes all other systems are reviewed and are negative [facility] Medical History Acquired hypothyroidism Multiple gastric ulcers Post concussion syndrome Family History Mother Diabetes Heart disease Heart failure Father Heart failure Heart disease Paternal Grandmother Diabetes Prostate CA Paternal Uncle Prostate CA Surgical History H/O colonoscopy H/O dilation and curettage (~1999) Hx of endoscopy (~07/2017) Social History Household Members: None Housing: House Alcohol intake: never Patient Tobacco Use Status: Former Tobacco user Tobacco use type: Cigarette e-Cigarette/Vaping Use: Never Used Second Hand Smoke Exposure: Yes Advance Directives: No Advance Directives Information Provided: No service: No Current occupational status: student Current occupational exposures/hazards: No Cognitive needs: No Hearing needs: No Vision needs: No Meds Allergies Allergy/AdvReac Type Severity Reaction Status Date / Time CRANBERRY JUICE Allergy Severe HIVES Uncoded 07/27/25 22:31 Active Medications: Current Medications Acetaminophen (Acetaminophen 325 Mg Tablet) 650 mg PO Q6H PRN PRN Reason: Pain, Mild 1-3,fever,headache Al Hydroxide/Mg Hydroxide (Magnesium Hydrox/Alum Hydrox 30 Ml Oral.Susp) 15 ml PO TID PRN PRN Reason: Heartburn Calcium Carbonate (Calcium Carbonate 750 Mg Tab.Chew) 750 mg PO Q4H PRN PRN Reason: Heartburn Enoxaparin Sodium (Enoxaparin Sodium 40 Mg/0.4 Ml Syringe) 40 mg SUBCUT Q24H NICO Magnesium Hydroxide (Milk Of Magnesia 30 Ml Oral.Susp) 30 ml PO DAILY PRN PRN Reason: Constipation Melatonin (Melatonin 3 Mg Tablet) 6 mg PO BEDTIME PRN PRN Reason: Insomnia Pantoprazole Sodium (Pantoprazole Sodium 40 Mg/10 Ml Vial) 40 mg IVPUSH BID@0630,1630 [facility] Sodium Chloride (0.9 % Sodium Chloride Flush 3 Ml Syringe) 3 ml IVFLUSH QSHIFT NICO Home Medications ?Medication ?Instructions ?Recorded ?Confirmed ?Last Taken ?Type thyroid (pork) 15 mg tablet 75 mg PO DAILY 07/16/2107/26/25 History ([place] Thyroid) Physical Exam 2 Vital Signs and Narrative: Vital Signs: Last Vital Signs Temp 98 F 07/28/25 07:27 Pulse 67 07/28/25 07:27 Resp 16 07/28/25 07:27 BP 141/94 H 07/28/25 07:27 Pulse Ox 95 07/28/25 07:27 O2 Del Method Room Air 07/28/25 07:27 BMI result Body Mass Index 21.3 General: AO X 3, no acute distress Resp: CTA bilateral, no accessory muscles used CVS: S1,S2,RRR GI: soft, non tender, non distended Neuro: motor grossly intact, alert Psych: appropriate affect, appropriate insight Results Labs 07/27/25 23:01 07/27/25 23:01 Labs: Laboratory Results - last 24 hr 07/27/25 07/28/25 23:01 00:03 MCV 89.4 MCH 30.7 MCHC 34.3 RDW 11.8 Plt Count 304 MPV 10.6 Immature Gran % (Auto) 0.3 Neut % (Auto) 88.7 H Lymph % (Auto) 9.9 L [place] % (Auto) 0.9 L Eos % (Auto) 0.1 Baso % (Auto) 0.1 Lymph # (Auto) 1.6 [place] # (Auto) 0.1 Eos # (Auto) 0.0 Baso # (Auto) 0.0 Abs Immat Gran (auto) 0.05 H Absolute Neuts (auto) 13.9 H Absolute Nucleated RBC 0.000 Nucleated RBC % (auto) 0.0 Anion Gap 12 Estim Creat Clear Calc 91.5 Estimated GFR > 60 Random Glucose 100 Calcium 9.4 Magnesium 1.8 Total Bilirubin 0.3 AST 44 H ALT 28 Alkaline Phosphatase 88 Total Protein 7.2 Albumin 4.4 Lipase 32 Beta HCG, Quant < 2 Urine Color Yellow Urine Appearance Clear Urine pH 5.5 Ur Specific [place] 1.020 Urine Protein Negative Urine Glucose (UA) Negative Urine Ketones Negative Urine Blood Trace H Urine Nitrite Negative Ur Leukocyte Esterase Trace H Urine RBC 3-5 H Urine WBC 6-10 H Ur Squamous Epith Cells 0-2 Urine Bacteria None Seen Hyaline Casts 0-2 Urine Test NEGATIVE Assessment and Plan (1) Hypothyroidism: Status: Acute Plan 44F PMH hypothyroid, presented with abdominal pain Abdominal pain after EGD IV ppi, advance diet as tolerated, GI eval Hypothyroid thryoid supplement dvt prophylaxis - lovenox full code Quality Stroke Does the patient have a stroke diagnosis?: No VTE Prior VTE?: No VTE Risk Level:: Medical - moderate - high VTE Device Contraindication: Treatment Not Indicated VTE Drug Contraindication: N/A - Med Ordered
[2025-07-28] MEDS: Lactated Ringers 1,000 ML 50 ML IVCONT (09:13)
[2025-07-28 09:49] LABS: MANUAL DIFF FLAG NO
--- NOTE | 2025-07-28 09:50 | PM.GICN ---
History of Present Illness Data of Consult Service Date: 07/28/25 Requesting physician: Vaughn Escamilla Primary Care Provider: MD GLO Toussaint Reason for consult: Abdominal pain This is a 44-year-old female with past medical history of GERD, Meeks's esophagus, who recently underwent EGD and colonoscopy and now returns to the ER for severe abdominal pain. Patient reports that she had unremarkable 12 hours post the procedure, however Tuesday afternoon, she started feeling nauseous with loss of appetite, followed by severe right-sided abdominal pain which worsens with eating and taking a deep breath. She has also had a few episodes of vomiting at home. No change in bowel habits, no fevers or chills. No sick contacts. No change/new meds. In the emergency room, she was noted to be afebrile, but tachycardic. Labs with leukocytosis. AST 44, ALT 28, wnl but doubled from her prior baseline. Initial CT scan done to rule out perforation post EGD and colonoscopy, which was negative for any perforation. It does show periportal edema and contracted gallbladder. She also had an ultrasound right upper quadrant that demonstrates similar findings without any cholelithiasis. EGD/colonoscopy 07/26/25: Distal esophagus biopsy and w. mapping biopsies in stomach. Duodenal biopsies. No biopsies or polypectomy performed in the colon. Review of Systems Review of Systems: Yes all other systems are reviewed and are negative PMFSH Past Medical History Medical History Acquired hypothyroidism Multiple gastric ulcers Post concussion syndrome Family History Family History Mother Diabetes Heart disease Heart failure Father Heart failure Heart disease Paternal Grandmother Diabetes Prostate CA Paternal Uncle Prostate CA Surgical History Surgical History H/O colonoscopy H/O dilation and curettage (~1999) Hx of endoscopy (~07/2017) Social History Social History Household Members: None Housing: House Alcohol intake: never Patient Tobacco Use Status: Former Tobacco user Tobacco use type: Cigarette e-Cigarette/Vaping Use: Never Used Second Hand Smoke Exposure: Yes Advance Directives: No Advance Directives Information Provided: No service: No Current occupational status: student Current occupational exposures/hazards: No Cognitive needs: No Hearing needs: No Vision needs: No Meds Allergies Allergy/AdvReac Type Severity Reaction Status Date / Time CRANBERRY JUICE Allergy Severe HIVES Uncoded 07/27/25 22:31 Active Medications: Current Medications Acetaminophen (Acetaminophen 325 Mg Tablet) 650 mg PO Q6H PRN PRN Reason: Pain, Mild 1-3,fever,headache Al Hydroxide/Mg Hydroxide (Magnesium Hydrox/Alum Hydrox 30 Ml Oral.Susp) 15 ml PO TID PRN PRN Reason: Heartburn Calcium Carbonate (Calcium Carbonate 750 Mg Tab.Chew) 750 mg PO Q4H PRN PRN Reason: Heartburn Enoxaparin Sodium (Enoxaparin Sodium 40 Mg/0.4 Ml Syringe) 40 mg SUBCUT Q24H [facility] Lactated Ringer's (Lr) 1,000 mls @ 50 mls/hr IVCONT .Q20H [facility] Last Admin: 07/28/25 09:13 Dose: 50 mls/hr Magnesium Hydroxide (Milk Of Magnesia 30 Ml Oral.Susp) 30 ml PO DAILY PRN PRN Reason: Constipation Melatonin (Melatonin 3 Mg Tablet) 6 mg PO BEDTIME PRN PRN Reason: Insomnia Pantoprazole Sodium (Pantoprazole Sodium 40 Mg/10 Ml Vial) 40 mg IVPUSH BID@0630,1630 [facility] Last Admin: 07/28/25 09:13 Dose: 40 mg Sodium Chloride (0.9 % Sodium Chloride Flush 3 Ml Syringe) 3 ml IVFLUSH QSHIFT [facility] Last Admin: 07/28/25 09:06 Dose: Not Given Home Medications ?Medication ?Instructions ?Recorded ?Confirmed ?Last Taken ?Type thyroid (pork) 15 mg tablet 75 mg PO DAILY 07/16/21 07/26/25 07/26/25 History ([place] Thyroid) Physical Exam Exam: Exam: Middle-aged female Nonicteric Clammy Abdomen soft, nondistended, tender to palpation epigastrium and right upper quadrant with positive Hall's sign Vital Signs: Vital Signs: Last Vital Signs Temp 98 F 07/28/25 07:27 Pulse 62 07/28/25 09:24 Resp 19 07/28/25 09:24 BP 110/70 07/28/25 09:24 Pulse Ox 100 07/28/25 09:24 O2 Del Method Room Air 07/28/25 09:24 BMI result Body Mass Index 21.3 Results Labs 07/27/25 23:01 07/27/25 23:01 Labs: Short CBC 07/27/25 Range/Units 23:01 WBC 15.7 H (4.8-10.8) X10*3/uL Hgb 12.2 (12.0-16.0) g/dl Hct 35.6 L (37.0-47.0) % Plt Count 304 (160-400) X10*3/uL BMP 07/27/25 23:01 Sodium 139 Potassium 4.0 Chloride 104 Carbon Dioxide 27 BUN 10 Creatinine 0.75 Calcium 9.4 Liver Function 07/27/25 Range/Units 23:01 Total Bilirubin 0.3 (0.0-1.0) mg/dL AST 44 H (5-31) U/L ALT 28 (0-31) U/L Alkaline Phosphatase 88 (39-117) U/L Albumin 4.4 (3.5-5.0) g/dL Urine 07/28/25 Range/Units 00:03 Urine Color Yellow Urine Appearance Clear Urine pH 5.5 (5.0-9.0) Ur Specific [place] 1.020 (1.005-1.025) Urine Protein Negative (Neg-Trace) mg/dL Urine Glucose (UA) Negative (Negative) mg/dL Assessment and Plan (1) Abdominal pain: Status: Acute (2) Nausea and vomiting: Status: Acute Plan Overall assessment suspicious for possible acute cholecystitis. Other differentials would include acute gastroenteritis/food-borne illness. Low suspicion for complications secondary to upper endoscopy given the location and character of pain. However, favor high dose antisecretory therapy. Plan: -repeat CBC and LFTs today -HIDA scan -Surg consult if HIDA pos -keep NPO until results available -Protonix IV b.i.d. and antacids ordered Thank you for allowing me to participate in her care. Please do not hesitate to reach out for any questions or concerns. Procedures Date of Service Date of Service: 07/28/25
--- NOTE | 2025-07-28 09:58 | PHA.MEDREC ---
Pharmacy Consult ? Medication Reconciliation Pharmacy has completed the medication reconciliation.
[2025-07-28 10:16] LABS: Alanine Aminotransferase 653 U/L (0-31); Albumin Level 3.7 g/dL (3.5-5.0); Alkaline Phosphatase 121 U/L (39-117); Anion Gap 9 (12-20); Aspartate Amino Transferase 702 U/L (5-31); Blood Urea Nitrogen 6 mg/dL (9-16); Calcium 8.8 mg/dL (8.4-10.2); Carbon Dioxide 28 mmol/L (22-29); Chloride 108 mmol/L (96-108); Creatinine Clr Calc Pharmacy 100.8; Estimated Glomerular Filt Rate > 60; Potassium 4.6 mmol/L (3.3-5.1); Sodium 140 mmol/L (135-145); Total Protein 5.8 g/dL (6.5-8.0)
[2025-07-28 10:22] LABS: Hematocrit 32.8 % (37.0-47.0); Hemoglobin 10.7 g/dl (12.0-16.0); Imm Gran Abs Auto 0.03 X10*3/uL (0.00-0.03); Imm Gran Pct Auto 0.3 % (0.0-0.4); Lymphocytes Absolute Auto 1.6 X10*3/uL (1.2-4.9); Mean Corpuscular HGB Conc 32.6 g/dl (31.0-35.0); Mean Corpuscular Hemoglobin 29.6 pg (27.0-33.0); Mean Corpuscular Volume 90.9 fL (80.0-98.0); NRBC Abs Auto 0.000 X10*3/uL (0.0-0.012); NRBC Pct Auto 0.0 /100WBC (0.0-0.2); Platelet Count 233 X10*3/uL (160-400); Red Blood Count 3.61 X10*6/uL (4.20-5.50); White Blood Count 9.4 X10*3/uL (4.8-10.8)
[2025-07-28] MEDS: metroNIDAZOLE/NS 500 MG/100 ML PIGGYBACK 100 MG IV ×2 (12:56→22:09)
[2025-07-29 03:54] VITALS: BP 94/57; PULSE 72; RESP 18; TEMP 36.2; O2SAT 97
[2025-07-29] MEDS: Lactated Ringers 1,000 ML 50 ML IVCONT (03:57)
[2025-07-29 05:52] LABS: Hematocrit 30.9 % (37.0-47.0); Hemoglobin 10.2 g/dl (12.0-16.0); Mean Corpuscular HGB Conc 33.0 g/dl (31.0-35.0); Mean Corpuscular Hemoglobin 30.1 pg (27.0-33.0); Mean Corpuscular Volume 91.2 fL (80.0-98.0); NRBC Abs Auto 0.000 X10*3/uL (0.0-0.012); NRBC Pct Auto 0.0 /100WBC (0.0-0.2); Platelet Count 232 X10*3/uL (160-400); Red Blood Count 3.39 X10*6/uL (4.20-5.50); White Blood Count 6.5 X10*3/uL (4.8-10.8)
[2025-07-29 06:07] LABS: Anion Gap 10 (12-20); Blood Urea Nitrogen 7 mg/dL (9-16); Calcium 8.7 mg/dL (8.4-10.2); Carbon Dioxide 28 mmol/L (22-29); Chloride 107 mmol/L (96-108); Creatinine Clr Calc Pharmacy 102.3; Estimated Glomerular Filt Rate > 60; Potassium 4.2 mmol/L (3.3-5.1); Sodium 141 mmol/L (135-145)
[2025-07-29 07:41] LABS: Alanine Aminotransferase 504 U/L (0-31); Albumin Level 3.5 g/dL (3.5-5.0); Alkaline Phosphatase 124 U/L (39-117); Aspartate Amino Transferase 241 U/L (5-31); Total Protein 5.7 g/dL (6.5-8.0)
[2025-07-29 07:49] VITALS: BP 100/56; PULSE 73; RESP 18; TEMP 36.2; O2SAT 98
--- NOTE | 2025-07-29 07:49 | PM.PNGS ---
Subjective Subjective Date of Service: 07/29/25 Interval history: Attempted to eat solids yesterday but was not able to tolerate much. Continues to c/o epigastric pain, somewhat improved from admission. No longer has chest pain. Some nausea. Physical Exam Vital Signs: Vital Signs: Last Vital Signs Temp 97.2 F 07/29/25 07:49 Pulse 73 07/29/25 07:49 Resp 18 07/29/25 07:49 BP 100/56 L 07/29/25 07:49 Pulse Ox 98 07/29/25 07:49 O2 Del Method Room Air 07/29/25 07:49 BMI result Body Mass Index 23.7 Const: General: comfortable, no acute distress and alert GI: Inspection: No distended Palpation (GI): Soft to palpation, Tenderness to palpation present (GI) (tender throughout upper abdomen, mostly in epigastric region), Guarding due to palpation present (GI) (voluntary) and not rigid Percussion: Yes normal to percussion Skin: General skin exam: no rashes or lesions noted and no jaundice Objective Data Active Medications Acetaminophen (Acetaminophen 325 Mg Tablet) 650 mg PO Q6H PRN PRN Reason: Pain, Mild 1-3,fever,headache Last Admin: 07/29/25 04:40 Dose: 650 mg Documented By: MARY Al Hydroxide/Mg Hydroxide (Magnesium Hydrox/Alum Hydrox 30 Ml Oral.Susp) 15 ml PO TID PRN PRN Reason: Heartburn Calcium Carbonate (Calcium Carbonate 750 Mg Tab.Chew) 750 mg PO Q4H PRN PRN Reason: Heartburn Ceftriaxone Sodium (Ceftriaxone Sodium 1 Gm Vial) 1 gm IVPUSH Q24H REPLACED BY [facility] Last Admin: 07/28/25 12:51 Dose: 1 gm Documented By: CINDI Enoxaparin Sodium (Enoxaparin Sodium 40 Mg/0.4 Ml Syringe) 40 mg SUBCUT Q24H REPLACED BY [facility] Lactated Ringer's (Lr) 1,000 mls @ 50 mls/hr IVCONT .Q20H REPLACED BY [facility] Last Admin: 07/29/25 03:57 Dose: 50 mls/hr Documented By: MARY Metronidazole (Flagyl) 500 mg in 100 mls @ 100 mls/hr IV Q12H REPLACED BY [facility] Last Infusion: 07/28/25 23:09 Dose: Infused Documented By: MARY Magnesium Hydroxide (Milk Of Magnesia 30 Ml Oral.Susp) 30 ml PO DAILY PRN PRN Reason: Constipation Melatonin (Melatonin 3 Mg Tablet) 6 mg PO BEDTIME PRN PRN Reason: Insomnia Morphine Sulfate (Morphine Sulfate 2 Mg/Ml Cartridge) 2 mg IVPUSH Q3H PRN; Protocol PRN Reason: Pain, Severe (Pain Scale 7-10) Ondansetron HCl (Ondansetron Hcl 4 Mg/2 Ml Vial) 4 mg IVPUSH Q6H PRN PRN Reason: Nausea Last Admin: 07/28/25 14:54 Dose: 4 mg Documented By: VIOLET Pantoprazole Sodium (Pantoprazole Sodium 40 Mg/10 Ml Vial) 40 mg IVPUSH BID@0630,1630 REPLACED BY [facility] Last Admin: 07/29/25 05:44 Dose: 40 mg Documented By: MARY Sodium Chloride (0.9 % Sodium Chloride Flush 3 Ml Syringe) 3 ml IVFLUSH QSHIFT REPLACED BY [facility] Last Admin: 07/29/25 07:27 Dose: Not Given Documented By: GREGG Non-Admin Reason: IV Running Thyroid (Thyroid,Pork 30 Mg Tablet) 75 mg PO DAILY@0600 REPLACED BY [facility] Last Admin: 07/29/25 05:07 Dose: Not Given Documented By: MARY Non-Admin Reason: Patient Refused Labs 07/29/25 05:07 07/29/25 05:07 Labs: Laboratory Results - last 24 hr 07/28/25 07/29/25 09:46 05:07 MCV 90.9 91.2 MCH 29.6 30.1 MCHC 32.6 33.0 RDW 11.9 11.9 Plt Count 233 232 MPV 11.1 11.2 Immature Gran % (Auto) 0.3 Neut % (Auto) 73.7 H Lymph % (Auto) 17.[address] % (Auto) 7.7 Eos % (Auto) 0.9 Baso % (Auto) 0.4 Lymph # (Auto) 1.6 [place] # (Auto) 0.7 Eos # (Auto) 0.1 Baso # (Auto) 0.0 Abs Immat Gran (auto) 0.03 Absolute Neuts (auto) 6.9 Absolute Nucleated RBC 0.000 0.000 Nucleated RBC % (auto) 0.0 0.0 Anion Gap 9 L 10 L Estim Creat Clear Calc 100.8 102.3 Estimated GFR > 60 > 60 Random Glucose 106 82 Calcium 8.8 D 8.7 Total Bilirubin 1.6 H 0.4 Direct Bilirubin 0.2 AST 702 H 241 H ALT 653 H 504 H Alkaline Phosphatase 121 H 124 H Total Protein 5.8 L 5.7 L Albumin 3.7 3.5 Procedures Date of Service Date of Service: 07/29/25 Progress Note: A&P Time Spent With Patient Time: Total time managing care of this patient today ____ minutes. Quality Stroke Does the patient have a stroke diagnosis?: No VTE Prior VTE?: No VTE Risk Level:: Medical - moderate - high VTE Device Contraindication: Treatment Not Indicated VTE Drug Contraindication: N/A - Med Ordered
--- NOTE | 2025-07-29 07:51 | P.CONGS_ITS ---
History of Present Illness Consult details Consult date: 07/29/25 Requesting physician: Vaughn Escamilla Narrative: Yesenia Chester is a 44 year old female with PMH hypothyroid, GERD, barretts esophagus who presented to the ED with complaints of abdominal pain. She underwent EGD with biopsies and colonoscopy on 07/26/2025. She reports on Tuesday morning, she didn't feel overall well but by the end of the day she had severe chest and epigastric abdominal pain that radiated to her back. This was associated with poor appetite, nausea and vomiting. Due to the severity of the pain she presented to the ED for evaluation. CBC, BMP, LFTs were obtained which was significant for 15.7. She had a mildly elevated AST of 44 at admission but had a marked increase in LFTs. CT scan showed no free intraperitoneal air but did show nonspecific periportal edema with a contracted gallbladder. ABD US was then performed which confirmed the periportal edema and contracted gallbladder without gallstones or biliary ductal dilatation. EGD/colonoscopy showed GERD, Esophagitis, Gastritis, Diverticulosis, hemorrhoids. She reports a history of Barretts esophagus found on previous EGD. She denies prior similar episodes of pain or fatty food intolerance but reports some mild pain after ingesting seed oil. She continues to report abdominal pain slightly improved, nausea and anorexia this morning. WBC count normalized prior to antibiotic administration. Review of Systems 2 Review of Systems: Yes all other systems are reviewed and are negative PMFSH Past Medical History Medical History Acquired hypothyroidism Multiple gastric ulcers Post concussion syndrome Family History Family History Mother Diabetes Heart disease Heart failure Father Heart failure Heart disease Paternal Grandmother Diabetes Prostate CA Paternal Uncle Prostate CA Surgical History Surgical History H/O colonoscopy H/O dilation and curettage (~1999) Hx of endoscopy (~07/2017) Social History Social History Household Members: Family Housing: House Do you presently have visiting nurse or other home services: No Alcohol intake: never Patient Tobacco Use Status: Former Tobacco user Tobacco use type: Cigarette e-Cigarette/Vaping Use: Never Used Second Hand Smoke Exposure: Yes Currently Displaying Signs/Symptoms of Drug Intoxication Withdrawal: No Have you been hit, kicked, punched, or otherwise hurt by someone within the past year? If so, by whom?: No Advance Directives: No Advance Directives Information Provided: No Do you have a plan to hurt others: No Plan Nutrition Risks: No Nutritional Risk Patient : No : No Poor oral hygiene: No service: No Current occupational status: student Current occupational exposures/hazards: No Cognitive needs: No Hearing needs: No Vision needs: No Meds Allergies Allergy/AdvReac Type Severity Reaction Status Date / Time CRANBERRY JUICE Allergy Severe HIVES Uncoded 07/27/25 22:31 Active Medications: Current Medications Acetaminophen (Acetaminophen 325 Mg Tablet) 650 mg PO Q6H PRN PRN Reason: Pain, Mild 1-3,fever,headache Last Admin: 07/29/25 04:40 Dose: 650 mg Al Hydroxide/Mg Hydroxide (Magnesium Hydrox/Alum Hydrox 30 Ml Oral.Susp) 15 ml PO TID PRN PRN Reason: Heartburn Calcium Carbonate (Calcium Carbonate 750 Mg Tab.Chew) 750 mg PO Q4H PRN PRN Reason: Heartburn Ceftriaxone Sodium (Ceftriaxone Sodium 1 Gm Vial) 1 gm IVPUSH Q24H [facility] Last Admin: 07/28/25 12:51 Dose: 1 gm Enoxaparin Sodium (Enoxaparin Sodium 40 Mg/0.4 Ml Syringe) 40 mg SUBCUT Q24H [facility] Lactated Ringer's (Lr) 1,000 mls @ 50 mls/hr IVCONT .Q20H [facility] Last Admin: 07/29/25 03:57 Dose: 50 mls/hr Metronidazole (Flagyl) 500 mg in 100 mls @ 100 mls/hr IV Q12H [facility] Last Infusion: 07/28/25 23:09 Dose: Infused Magnesium Hydroxide (Milk Of Magnesia 30 Ml Oral.Susp) 30 ml PO DAILY PRN PRN Reason: Constipation Melatonin (Melatonin 3 Mg Tablet) 6 mg PO BEDTIME PRN PRN Reason: Insomnia Morphine Sulfate (Morphine Sulfate 2 Mg/Ml Cartridge) 2 mg IVPUSH Q3H PRN; Protocol PRN Reason: Pain, Severe (Pain Scale 7-10) Ondansetron HCl (Ondansetron Hcl 4 Mg/2 Ml Vial) 4 mg IVPUSH Q6H PRN PRN Reason: Nausea Last Admin: 07/28/25 14:54 Dose: 4 mg Pantoprazole Sodium (Pantoprazole Sodium 40 Mg/10 Ml Vial) 40 mg IVPUSH BID@0630,1630 [facility] Last Admin: 07/29/25 05:44 Dose: 40 mg Sodium Chloride (0.9 % Sodium Chloride Flush 3 Ml Syringe) 3 ml IVFLUSH QSHIFT [facility] Last Admin: 07/29/25 07:27 Dose: Not Given Thyroid (Thyroid,Pork 30 Mg Tablet) 75 mg PO DAILY@0600 [facility] Last Admin: 07/29/25 05:07 Dose: Not Given Home Medications ?Medication ?Instructions ?Recorded ?Confirmed ?Last Taken ?Type thyroid (pork) 15 mg tablet 75 mg PO DAILY 07/16/2107/27/25 History (Shelly Thyroid) Physical Exam 2 Vital Signs: Vital Signs: Last Vital Signs Temp 97.2 F 07/29/25 07:49 Pulse 73 07/29/25 07:49 Resp 18 07/29/25 07:49 BP 100/56 L 07/29/25 07:49 Pulse Ox 98 07/29/25 07:49 O2 Del Method Room Air 07/29/25 07:49 BMI result Body Mass Index 23.7 Const: General: comfortable, no acute distress and alert O rientation/consciousness: patient oriented x3 Resp: Effort & Inspection: normal respiratory effort GI: Inspection: Yes normal to inspection, No distended and No scar P alpation (GI): Soft to palpation, Tenderness to palpation present (GI) (marked epigastric and moderate RUQ), Guarding due to palpation present (GI) (voluntary) and not rigid Percussion: Yes normal to percussion Skin: General skin exam: no rashes or lesions noted and no jaundice Neuro: General: patient oriented x3 and moves all extremities Results Labs 07/29/25 05:07 07/29/25 05:07 Labs: Abnormal lab results 07/28/25 07/29/25 Range/Units 09:46 05:07 RBC 3.61 L 3.39 L (4.20-5.50) X10*6/uL Hgb 10.7 L 10.2 L (12.0-16.0) g/dl Hct 32.8 L 30.9 L (37.0-47.0) % Neut % (Auto) 73.7 H (45-73) % Lymph % (Auto) 17.0 L (20-40) % Anion Gap 9 L 10 L (12-20) BUN 6 L 7 L (9-16) mg/dL Total Bilirubin 1.6 H (0.0-1.0) mg/dL AST 702 H 241 H (5-31) U/L ALT 653 H 504 H (0-31) U/L Alkaline Phosphatase 121 H 124 H (39-117) U/L Total Protein 5.8 L 5.7 L (6.5-8.0) g/dL Short CBC 07/28/25 07/29/25 Range/Units 09:46 05:07 WBC 9.4 6.5 (4.8-10.8) X10*3/uL Hgb 10.7 L 10.2 L (12.0-16.0) g/dl Hct 32.8 L 30.9 L (37.0-47.0) % Plt Count 233 232 (160-400) X10*3/uL BMP 07/28/25 07/29/25 09:46 05:07 Sodium 140 141 Potassium 4.6 4.2 Chloride 108 107 Carbon Dioxide 28 28 BUN 6 L 7 L Creatinine 0.68 0.67 Calcium 8.8 D 8.7 Liver Function 07/28/25 07/29/25 Range/Units 09:46 05:07 Total Bilirubin 1.6 H 0.4 (0.0-1.0) mg/dL Direct Bilirubin 0.2 (0.0-0.5) mg/dL AST 702 H 241 H (5-31) U/L ALT 653 H 504 H (0-31) U/L Alkaline Phosphatase 121 H 124 H (39-117) U/L Albumin 3.7 3.5 (3.5-5.0) g/dL Urine 07/28/25 Range/Units 00:03 Urine Color Yellow Urine Appearance Clear Urine pH 5.5 (5.0-9.0) Ur Specific [place] 1.020 (1.005-1.025) Urine Protein Negative (Neg-Trace) mg/dL Urine Glucose (UA) Negative (Negative) mg/dL Urine Test NEGATIVE (NEGATIVE) All other labs normal. Imaging Abdomen CT scan report/results: report reviewed and image reviewed Abdominal ultrasound report/results: report reviewed and image reviewed Additional studies: labs reviewed Assessment and Plan (1) Abdominal pain: Status: Acute Plan 44 year old female with PMH hypothyroid, GERD, barretts esophagus who presented to the ED with complaints of severe epigastric/chest pain 1 day following EGD with biopsies and colonoscopy. CT scan showed no perforation but did show periportal edema with contracted gallbladder. There was concern for acute cholecystitis and therefore general surgery was consulted. She has no gallstones on imaging and WBC normalized prior to abx admin. Unclear etiology of abd pain but she does remain very tender in the epigastric region. Will await HIDA scan results. LFTs improving and bili is now normal. Procedures Date of Service Date of Service: 07/29/25
--- NOTE | 2025-07-29 08:39 | HO.PM.IMPN ---
Subjective Subjective Date of Service: 07/29/25 Physical Exam Vital Signs: Vital Signs: Last Vital Signs Temp 97.2 F 07/29/25 07:49 Pulse 73 07/29/25 07:49 Resp 18 07/29/25 07:49 BP 100/56 L 07/29/25 07:49 Pulse Ox 98 07/29/25 07:49 O2 Del Method Room Air 07/29/25 07:49 BMI result Body Mass Index 23.7 Const: General: comfortable, no acute distress and alert Orientation/consciousness: patient oriented x3 Resp: Effort & Inspection: normal respiratory effort GI: Inspection: Yes normal to inspection, No distended and No scar Palpation (GI): Soft to palpation, Tenderness to palpation present (GI) (marked epigastric and moderate RUQ), Guarding due to palpation present (GI) (voluntary) and not rigid Percussion: Yes normal to percussion Skin: General skin exam: no rashes or lesions noted and no jaundice Neuro: General: patient oriented x3 and moves all extremities Objective Data Active Medications Acetaminophen (Acetaminophen 325 Mg Tablet) 650 mg PO Q6H PRN PRN Reason: Pain, Mild 1-3,fever,headache Last Admin: 07/29/25 04:40 Dose: 650 mg Documented By: MARY Al Hydroxide/Mg Hydroxide (Magnesium Hydrox/Alum Hydrox 30 Ml Oral.Susp) 15 ml PO TID PRN PRN Reason: Heartburn Calcium Carbonate (Calcium Carbonate 750 Mg Tab.Chew) 750 mg PO Q4H PRN PRN Reason: Heartburn Ceftriaxone Sodium (Ceftriaxone Sodium 1 Gm Vial) 1 gm IVPUSH Q24H [facility] Last Admin: 07/28/25 12:51 Dose: 1 gm Documented By: CINDI Enoxaparin Sodium (Enoxaparin Sodium 40 Mg/0.4 Ml Syringe) 40 mg SUBCUT Q24H [facility] Lactated Ringer's (Lr) 1,000 mls @ 50 mls/hr IVCONT .Q20H [facility] Last Admin: 07/29/25 03:57 Dose: 50 mls/hr Documented By: MARY Metronidazole (Flagyl) 500 mg in 100 mls @ 100 mls/hr IV Q12H [facility] Last Infusion: 07/28/25 23:09 Dose: Infused Documented By: MARY Magnesium Hydroxide (Milk Of Magnesia 30 Ml Oral.Susp) 30 ml PO DAILY PRN PRN Reason: Constipation Melatonin (Melatonin 3 Mg Tablet) 6 mg PO BEDTIME PRN PRN Reason: Insomnia Morphine Sulfate (Morphine Sulfate 2 Mg/Ml Cartridge) 2 mg IVPUSH Q3H PRN; Protocol PRN Reason: Pain, Severe (Pain Scale 7-10) Ondansetron HCl (Ondansetron Hcl 4 Mg/2 Ml Vial) 4 mg IVPUSH Q6H PRN PRN Reason: Nausea Last Admin: 07/28/25 14:54 Dose: 4 mg Documented By: VIOLET Pantoprazole Sodium (Pantoprazole Sodium 40 Mg/10 Ml Vial) 40 mg IVPUSH BID@0630,1630 [facility] Last Admin: 07/29/25 05:44 Dose: 40 mg Documented By: MARY Sodium Chloride (0.9 % Sodium Chloride Flush 3 Ml Syringe) 3 ml IVFLUSH QSHIFT [facility] Last Admin: 07/29/25 07:27 Dose: Not Given Documented By: GREGG Non-Admin Reason: IV Running Thyroid (Thyroid,Pork 30 Mg Tablet) 75 mg PO DAILY@0600 [facility] Last Admin: 07/29/25 05:07 Dose: Not Given Documented By: MARY Non-Admin Reason: Patient Refused Labs 07/29/25 05:07 07/29/25 05:07 Labs: Laboratory Results - last 24 hr 07/28/25 07/29/25 09:46 05:07 MCV 90.9 91.2 MCH 29.6 30.1 MCHC 32.6 33.0 RDW 11.9 11.9 Plt Count 233 232 MPV 11.1 11.2 Immature Gran % (Auto) 0.3 Neut % (Auto) 73.7 H Lymph % (Auto) 17.0 L [place] % (Auto) 7.7 Eos % (Auto) 0.9 Baso % (Auto) 0.4 Lymph # (Auto) 1.6 [place] # (Auto) 0.7 Eos # (Auto) 0.1 Baso # (Auto) 0.0 Abs Immat Gran (auto) 0.03 Absolute Neuts (auto) 6.9 Absolute Nucleated RBC 0.000 0.000 Nucleated RBC % (auto) 0.0 0.0 Anion Gap 9 L 10 L Estim Creat Clear Calc 100.8 102.3 Estimated GFR > 60 > 60 Random Glucose 106 82 Calcium 8.8 D 8.7 Total Bilirubin 1.6 H 0.4 Direct Bilirubin 0.2 AST 702 H 241 H ALT 653 H 504 H Alkaline Phosphatase 121 H 124 H Total Protein 5.8 L 5.7 L Albumin 3.7 3.5 Assessment and Plan (1) Acquired hypothyroidism: Status: Acute Plan 44F PMH hypothyroid, presented with abdominal pain Abdominal pain after EGD wtih transaminitis initially concern for acute cholecystitis - hida negative continue rocephin, flaygl gi and surgery following Hypothyroid thryoid supplement dvt prophylaxis - lovenox full code reason for continued hospitalization:working up abd pain, transaminitis Quality Stroke Does the patient have a stroke diagnosis?: No VTE Prior VTE?: No VTE Risk Level:: Medical - moderate - high VTE Device Contraindication: Treatment Not Indicated VTE Drug Contraindication: N/A - Med Ordered
--- NOTE | 2025-07-29 10:51 | MHC.CM.PN ---
PTL LIVES WITH IS INDEPENDENT HAS OWN RIDE HOME DC PLAN HOME NO SERVICES
--- NOTE | 2025-07-29 11:30 | P.DS_ITS ---
DS: Providers Provider Date of Service: 07/29/25 Date of admission: 07/28/25 10:21 Date of discharge: 07/29/25 Primary care physician: Bjorn Dennis MD Consults: 07/28/25 07:19 Consult to Gastroenterology Routine Consulting Provider: [facility] Gastroenterology Services Reason for consultation: post egd/colonoscopy, abd pain 07/28/25 10:19 Consult to General Surgery Routine Consulting Provider: [facility] General Surgeons Reason for consultation: ?cholecystitis DS: Diagnosis Discharge Diagnosis (1) Acquired hypothyroidism: Status: Acute DS: Summary Hospital Course Hospital Course: from initial hpi: 44F PMH hypothyroid, presented with abdominal pain. Patient underwent EGD and colonoscopy 07/26/2025, EGD showed esophagitis and gastritis, colonoscopy showed diverticulosis and hemorrhoids biopsies were taken. Day after procedure patient to felt epigastric abdominal pain radiating to chest, burning in nature, intractable, poor appetite, nausea and vomiting. In ED noted to have leukocytosis of 15.7, CT abdomen showed nonspecific periportal edema. hospital course: Patient was admitted for abdominal pain after EGD and colonoscopy complicated by transaminitis and periportal edema found on CAT scan. Initially concern for acute cholecystitis was started on ceftriaxone and Flagyl, however, HIDA was negative. Antibiotics were discontinued. Transaminitis improved and symptoms significantly improved patient was able to tolerate solid diet. Differential includes medication induced, though dose of propofol during procedure not arrange expected for toxicity, no documented significant hypotension during procedure to cause ischemic hepatitis. S patient is symptomatically much improved will discharge home and should follow up with Gastroenterology as outpatient. For hypothyroid was continued on thyroid replacement. Time Attestation Discharge Coordination Time (in mins): 34 Quality: Safe Use of Opioids Does Pt have an Active Cancer Diagnosis on the Problem List?: No Quality: Stroke Does the patient have a stroke diagnosis?: No Physical Exam Exam: Exam: General: AO X 3, no acute distress Resp: CTA bilateral, no accessory muscles used CVS: S1,S2,RRR GI: soft, mild ruq tender, non distended Neuro: motor grossly intact, alert Psych: appropriate affect, appropriate insight Vital Signs: Vital Signs: Last Vital Signs Temp 97.2 F 07/29/25 07:49 Pulse 73 07/29/25 07:49 Resp 18 07/29/25 07:49 BP 100/56 L 09/29/25 07:49 Pulse Ox 98 07/29/25 07:49 O2 Del Method Room Air 07/29/25 07:49 BMI result Body Mass Index 23.7 DS: Data Data Completed and Pending Labs on day of discharge: Laboratory Results - last 24 hr 07/29/25 05:07 WBC 6.5 RBC 3.39 L Hgb 10.2 L Hct 30.9 L MCV 91.2 MCH 30.1 MCHC 33.0 RDW 11.9 Plt Count 232 MPV 11.2 Absolute Nucleated RBC 0.000 Nucleated RBC % (auto) 0.0 Sodium 141 Potassium 4.2 Chloride 107 Carbon Dioxide 28 Anion Gap 10 L BUN 7 L Creatinine 0.67 Estim Creat Clear Calc 102.3 Estimated GFR > 60 Random Glucose 82 Calcium 8.7 Total Bilirubin 0.4 Direct Bilirubin 0.2 AST 241 H ALT 504 H Alkaline Phosphatase 124 H Total Protein 5.7 L Albumin 3.5 Discharge Plan Discharge Anticipated Discharge Date/Time: 07/29/25 11:23 Patient Disposition: Home, Self-Care Discharge Diagnosis: abd pain Referrals: Ivelisse Liang MD [Physician, Gastroenterology] - 1 Week Bjorn Dennis MD [Primary Care Provider, Internal Medicine] - 1 Week Discharge Medications: New ondansetron 4 mg tablet,disintegrating 4 mg PO Q8H PRN (Reason: nausea and vomiting) Qty: 10 0RF Continued psyllium husk 0.52 gram capsule 0.52 g PO BID 60 Days Qty: 120 2RF tretinoin 0.025 % cream 1 appl topical BEDTIME Qty: 45 0RF thyroid (pork) [[place] Thyroid] 15 mg tablet 75 mg PO DAILY Discharge Orders: Discharge Order (Routine); Ordered 07/29/25 Ordered By: Vaughn Escamilla Diet: Advance to usual diet Activity on Discharge: As tolerated Stand Alone Forms: Patient Portal Discharge page, Against Medical Advice Print Language: French Other Ambulatory Orders: Liver Panel (Routine) Timeframe: 1 Week Facility: [facility] - Location: Laboratory Ordered By: Vaughn Escamilla Care Plan Goals: recovery Health Concerns: abd pain Plan of Treatment: repeat labs in 1 week, follow up with gi Assessment: see above Patient Instructions: Abdominal Pain (ED)
--- NOTE | 2025-07-29 12:00 | MHC.CM.PN ---
PT DCD HOME SELF CARE
== END 2025-07-29 12:06 | disposition home or self-care (01) | DRG 392 ==
LOC: HO.ED 07-28 06:04 → HO.EDOVER 07-28 07:13 → HO.S3 07-28 12:00
PROVIDERS: Internal Medicine; Physician Assistant Medical; Admitting Provider Hospitalist; Emergency Provider Emergency Medicine; PCP Internal Medicine; Visit Provider Internal Medicine
DX: R10.11 Right upper quadrant pain (principal); E03.9 Hypothyroidism, unspecified; R74.01 Elevation of levels of liver transaminase levels; Z87.891 Personal history of nicotine dependence; Z79.890 Hormone replacement therapy; Z79.899 Other long term (current) drug therapy
CPT/HCPCS: 36415; 74177; 76705; 78226; 80048; 80053; 80076; 81001; 81025; 83690; 83735; 84702; 85025; 85027; 87086; 93005; 99285; A9537; J0131; J0696; J1171; J1308; J1836; J2250; J2270; J2405; J2470; J7120; Q9967

== ENCOUNTER → 2025-07-27 22:40 | Outpatient (BNV) | payer OTHER, MEDICAID, SELFPAY | PROVIDERS: Admitting Provider Hospitalist; Emergency Provider Emergency Medicine; PCP Internal Medicine; Visit Provider Internal Medicine Cardiovascular Disease | DX: R00.0 Tachycardia, unspecified (principal) | CPT/HCPCS: 93010 ==

== ENCOUNTER → 2025-07-28 01:31 | Outpatient (BNV) | payer OTHER, MEDICAID, SELFPAY | PROVIDERS: PCP Internal Medicine; Visit Provider Radiology Diagnostic Radiology | DX: R10.10 Upper abdominal pain, unspecified (principal); G93.6 Cerebral edema; R91.1 Solitary pulmonary nodule; K82.8 Other specified diseases of gallbladder | CPT/HCPCS: 74177; 76705 ==

== ENCOUNTER → 2025-07-28 06:41 | Outpatient (BNV) | payer OTHER, MEDICAID, SELFPAY | PROVIDERS: Admitting Provider Hospitalist; Emergency Provider Emergency Medicine; PCP Internal Medicine; Visit Provider Internal Medicine | DX: E03.9 Hypothyroidism, unspecified (principal) | CPT/HCPCS: 99223 ==

== ENCOUNTER → 2025-07-28 06:41 | Outpatient (BNV) | payer OTHER, MEDICAID, SELFPAY | PROVIDERS: Admitting Provider Hospitalist; Emergency Provider Emergency Medicine; PCP Internal Medicine; Visit Provider Internal Medicine | DX: R10.9 Unspecified abdominal pain (principal); R11.2 Nausea with vomiting, unspecified | CPT/HCPCS: 99222 ==

== ENCOUNTER 2025-07-28 10:21 | Outpatient (BNV) | payer OTHER, MEDICAID, SELFPAY | END 2025-07-29 07:37 | PROVIDERS: Admitting Provider Hospitalist; Emergency Provider Emergency Medicine; PCP Internal Medicine; Visit Provider Radiology Diagnostic Radiology | DX: R19.8 Other specified symptoms and signs involving the digestive system and abdomen (principal) | CPT/HCPCS: 78226 ==

== ENCOUNTER → 2025-07-28 10:21 | Outpatient (BNV) | payer OTHER, MEDICAID, SELFPAY | PROVIDERS: Admitting Provider Hospitalist; Emergency Provider Emergency Medicine; PCP Internal Medicine; Visit Provider Physician Assistant Surgical | DX: R10.9 Unspecified abdominal pain (principal) | CPT/HCPCS: 99222 ==

== ENCOUNTER 2025-08-05 06:41 | Outpatient (REF) | payer OTHER, MEDICAID, SELFPAY ==
--- OUTSIDE RECORDS SUMMARY | 2025-08-05 06:52 | XMS_ITS | Encounter Summary ---
Author Organization [employer] [facility] Address [address] [place] [address] Care Team Providers Care Tool Grinder Operator External Name Role Phone Unavailable Primary Care Provider Unavailabl e Encounter Details Date Type Department Care Team (Late st Contact Info) Description 08/02/2025 Population Health Risk Score [facility] (C3) Department [address] [place] [address] Provider, Population Health Generic Social History Tobacco Use Types Packs/Day Years Used Date Smoking Tobacco: Never Assessed Comments Unknown Sex and Gender Information Value Date Recorded Sex Assigned at Not on file Legal Sex Female 2:29 AM EDT Gender Identity Not on file Sexual Orientation Not on file documented as of this encounter Plan of Treatment Not on file documented as of this encounter Visit Diagnoses Not on filedocumented in this encounter
--- OUTSIDE RECORDS SUMMARY | 2025-08-05 06:52 | XMS_ITS | Clinical Summary ---
Author Organization [facility] [facility] Address [address] [place] [address] Care Team Providers Care Control System Manager Name Role Phone Unavailable Primary Care Provider Unavailabl e Encounters Date Type Department Care Team Description 08/02/2025 Population Health Risk Score [facility] Care [facility] (C3) Department [address] [facility] [address] [place] [id number] Provider, Population Health Generic from Last 3 Months Social History Tobacco Use Types Packs/Day Years Used Date Smoking Tobacco: Never Assessed Comments Unknown Sex and Gender Information Value Date Recorded Sex Assigned at Not on file Legal Sex Female 2:29 AM EDT Gender Identity Not on file Sexual Orientation Not on file Plan of Treatment Health Maintenance Due Date Last Done Comments Depression Screening 1982 HIV Screening 1982 SDOH Screening 1982 Disability Screening 1982 Alcohol/Substance Use Screening 1994 Tobacco Screening 1994 Family Planning (PISQ) 1997 HPV Vaccines (1 - 3-dose series) 1997 Hepatitis C Screening 2000 DTaP/Tdap/Td Vaccines (1 - Tdap) 2001 Hepatitis B Vaccines (1 of 3 - 19+ 3-dose series) 2001 Pap Smear 2003 Cervical Cancer Screening 2012 HPV/Cotest 2012 Mammogram 2022 COVID-19 Vaccine ( - 2023-2 5 season) 2025 Influenza Vaccine (#1) 2025 Zoster Vaccines (1 of 2) 2032 RSV Patients and Pa tients Aged 60 years or older (1 - 1-dose 75+ series) 2057 HIB Vaccines Aged Out No longer eligi ble based on patient's age to complete this topic Hepatitis A Vaccines Aged Out No long er eligible based on patient's age to complete this topic IPV Vaccines Aged Out No longer eligi ble based on patient's age to complete this topic Meningococcal B Vaccine Aged Out No l onger eligible based on patient's age to complete this topic Meningococcal Vaccine Aged Out No patrick yadira eligible based on patient's age to complete this topic Pneumococcal Vaccine: Pediat rics (0 to 5 Years) and At-Risk Patients (6 to 49) Years Aged Out No longer eligible b ased on patient's age to complete this topic RSV under 20 months Aged Out No longe r eligible based on patient's age to complete this topic Rotavirus Vaccines Aged Out No longer eligible based on patient's age to complete this topic
--- OUTSIDE RECORDS SUMMARY | 2025-08-05 06:52 | XMS_ITS | Patient Health Record ---
Author Organization [facility] Address [address] [place] [address] Care Team Providers Care Synthetic Staple Extruder Name Role Phone Torri (RETIRED) Cesar GAMEZ Primary Care Provide r Unavailable Mal Frye Jr Unavailable Reason For Referral No Information Plan Of Treatment No Information Insurance Providers Payer Name Payer Address Payer Phone Subscriber Number Group Number Insured Name Patient Relationship to Insured Coverage Start Date Coverage End Date [facility] [address] [address] [place], [place] [id number] JOSUE NELSON Self - patient is the insured [facility] Plan DON'T USE [address] [place] [address] [id number] JOSUE NELSON Self - patient is the insured Medical (General) History Medical History History ICD Code plantar fasciitis rosacea vitiligo Surgical History Surgery Date(Month/Year) dilatation and curettage
[2025-08-05 08:02] LABS: Alanine Aminotransferase 70 U/L (0-31); Albumin Level 4.2 g/dL (3.5-5.0); Alkaline Phosphatase 90 U/L (39-117); Aspartate Amino Transferase 18 U/L (5-31); Total Protein 6.7 g/dL (6.5-8.0)
== END 2025-08-05 06:42 | disposition home or self-care (01) ==
LOC: HO.LAB 06:41
PROVIDERS: PCP Internal Medicine; Visit Provider Internal Medicine
DX: R11.2 Nausea with vomiting, unspecified (principal)
CPT/HCPCS: 36415; 80076

== ENCOUNTER 2025-08-06 10:08 | Outpatient (REF) | payer OTHER, MEDICAID, SELFPAY ==
--- NOTE | ~2025-08-06 | US_ITS ---
CLINICAL HISTORY: R79.89 - Other specified abnormal findings of blood chemistry --- Additional Notes or Special Instructions: RUQ US to rule out GB or biliary pathology ULTRASOUND ABDOMEN LIMITED COMPARISON: 07/28/2025. FINDINGS: No focal liver lesion. Gallbladder is unremarkable. No stone or sludge. No gallbladder wall thickening or pericholecystic fluid. Common bile duct measures 2-3 mm in caliber. Right kidney measures 11.5 cm. No stone or hydronephrosis. Extrarenal pelvis is noted. Visualized portions of the pancreas are unremarkable. There are no fluid collections. IMPRESSION: 1. No acute disease. This document has been electronically signed by: Eugenio Tomlinson M.D. on 08/07/2025 05:33:43
--- OUTSIDE RECORDS SUMMARY | 2025-08-06 11:59 | XMS_ITS | Clinical Summary ---
Author Organization [facility] Address [address] [place] [address] Care Team Providers Care Gi Tech Name Role Phone Unavailable Primary Care Provider Unavailabl e Encounters Date Type Department Care Team Description 08/02/2025 Population Health Risk Score [facility] (C3) Department [address] [facility] [address] [place] [id number] Provider, Population Health Generic from Last 3 [...]
--- OUTSIDE RECORDS SUMMARY | 2025-08-06 11:59 | XMS_ITS | Encounter Summary ---
Author Organization [employer] [facility] Address [address] [place] [address] Care Team Providers Care Gastroenterology Nurse Practitioner Name Role Phone Unavailable Primary Care Provider Unavailabl e Encounter Details Date Type Department Care Team (Late st Contact Info) Description 08/02/2025 Population Health Risk Score [facility] (C3) Department [address] [facility] [address] [place] [address] Provider, Population Health Generic Social [...]
--- OUTSIDE RECORDS SUMMARY | 2025-08-06 11:59 | XMS_ITS | Patient Health Record ---
Author Organization [facility] Address [address] [place] [address] Care Team Providers Care Virtual Office Assistant Name Role Phone Torri (RETIRED) Cesar GAMEZ Primary Care Provide r Unavailable Mal Frye Jr Unavailable [phone] Reason For Referral No Information Plan Of Treatment No Information Insurance Providers Payer Name Payer Address Payer Phone Subscriber Number Group Number Insured Name Patient Relationship to Insured Coverage Start Date Coverage End Date [facility] [address] [address] [place], [place] [id number] JOSUE NELSON Self - patient is the insured [facility] Plan DON'T USE [address] DON'[place] [address] [id number] JOSUE NELSON Self - patient is the insured Medical (General) History Medical History History ICD Code plantar fasciitis rosacea vitiligo Surgical History Surgery Date(Month/Year) dilatation and curettage
== END 2025-08-06 10:09 | disposition home or self-care (01) ==
LOC: HO.US 10:08
PROVIDERS: PCP Internal Medicine; Visit Provider Internal Medicine Gastroenterology
DX: R79.89 Other specified abnormal findings of blood chemistry (principal)
CPT/HCPCS: 76705

== ENCOUNTER → 2025-08-06 10:09 | Outpatient (BNV) | payer OTHER, MEDICAID, SELFPAY | PROVIDERS: PCP Internal Medicine; Visit Provider Radiology Diagnostic Radiology | DX: R79.89 Other specified abnormal findings of blood chemistry (principal) | CPT/HCPCS: 76705 ==